=== PATIENT | male | born 1995 | race Caucasian/White ===

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

== ENCOUNTER 2017-04-25 12:26 | Emergency (ER) | payer OTHER ==
[2017-04-25 12:40] VITALS: BP 129/62; PULSE 98; TEMP 98.5; BMI 23.0
[2017-04-25] MEDS ORDERED: MAG HYDROX/AL HYDROX/SIMETH 355 ML ORAL.SUSP PO ONE (14:26)
[2017-04-25] MEDS ORDERED: LIDOCAINE VISCOUS 2% ORAL/TOP 20 ML UNIT-DOSE CUP MM ONE (14:26)
--- NOTE | 2017-04-25 14:37 | PDOC ---
History of Present Illness - General Chief Complaint: Sore Throat Stated Complaint: SOB Time Seen by Provider: 04/25/17 13:19 History Source: Patient Exam Limitations: No Limitations - History of Present Illness Initial Comments: 04/25/17 14:32 22 yr male with c/o "something stuck in the throat" for one week feels like a clogged sore throat. no fever no chills, pt denies swallowing any food that may be stuck. Pt is able to drink and eat, has a post nasal drip. non smoking, no drugs or ETOH. Pt has hsitory of GERD. Past History - Past Medical History Allergies/Adverse Reactions: Allergies Allergy/AdvReac Type Severity Reaction Status Date / Time No Known Allergies Allergy Verified 04/25/17 12:40 Home Medications: Ambulatory Orders Fluticasone Prop 0.05% Nasal [Flonase -] 1 - 2 spray NS DAILY #1 spray.pump Asthma: Yes Cardiac Disorders: Yes (MURMUR) GI Disorders: Yes (GERD) Psychiatric Problems: Yes (ANXIETY) - Immunization History Immunization Up to Date: Yes - Suicide/Smoking/Psychosocial Hx Smoking Status: No Smoking History: Never smoked Have you smoked in the past 12 months: No Number of Cigarettes Smoked Daily: 0 Information on smoking cessation initiated: No Hx Alcohol Use: No Drug/Substance Use Hx: No Substance Use Type: None Review of Systems - Review of Systems Able to Perform ROS?: Yes Is the patient limited Kazakh proficient: No Constitutional: No: Symptoms Reported HEENTM: Yes: Symptoms Reported, Difficulty Swallowing Respiratory: No: Symptoms reported Cardiac (ROS): No: Symptoms Reported ABD/GI: No: Symptoms Reported : No: Symptoms Reported Musculoskeletal: No: Symptoms Reported Integumentary: No: Symptoms Reported Neurological: No: Symptoms reported *Physical Exam - Vital Signs Last Vital Signs Temp Pulse Resp BP Pulse Ox 98.5 F 98 H 18 129/62 100 04/25/17 12:38 04/25/17 12:38 04/25/17 12:38 04/25/17 12:38 04/25/17 12:38 - Physical Exam General Appearance: Yes: Nourished, Appropriately Dressed HEENT: positive: EOMI, FRANCOIS, Normal ENT Inspection, TMs Normal, Pharynx Normal, Other (neg tonsilar exudate or swelling , pos post nasal drip ) Neck: positive: Supple. negative: Tender, Lymphadenopathy (R), Lymphadenopathy (L), Rigidity, Tender lateral Respiratory/Chest: positive: Lungs Clear, Normal Breath Sounds. negative: Chest Tender, Stridor, Wheezing Cardiovascular: positive: Regular Rhythm, Regular Rate Gastrointestinal/Abdominal: positive: Normal Bowel Sounds, Soft Musculoskeletal: positive: Normal Inspection Extremity: positive: Normal Capillary Refill, Normal Inspection, Normal Range of Motion Integumentary: positive: Normal Color, Dry, Warm Neurologic: positive: Fully Oriented, Alert, Normal Mood/Affect, Normal Response , Motor Strength 11/14 Medical Decision Making - Medical Decision Making 04/25/17 14:35 cc: sore throat, "something stuck in throat" no fever no chills speaking clearly no chest pain or shortness of breath will check for strep no recent travel or surgeries , no history of PE will give lidocaine, mallox and xray soft tissue neck and CXR *DC/Admit/Observation/Transfer Diagnosis at time of Disposition: Laryngopharyngitis - Discharge Dispostion Disposition: HOME Condition at time of disposition: Good - Prescriptions Prescriptions: Fluticasone Prop 0.05% Nasal [Flonase -] 1 - 2 spray NS DAILY #1 spray.pump - Referrals Referrals: Brian Burns MD [Primary Care Provider] - Yobani Bennett MD [Staff Physician] - - Patient Instructions Additional Instructions: gargle with warm salt water 4-5 times a day follow with the ENT doctor next week to make a follow up appointment CALL THURSDAY use flonase nasal spray as directed to help with any post nasal drip
[2017-04-25] MEDS ORDERED: MAG HYDROX/AL HYDROX/SIMETH 30 ML UNIT-DOSE CUP ONE (14:57)
[2017-04-25] MEDS ORDERED: LIDOCAINE VISCOUS 2% ORAL/TOP 20 ML UNIT-DOSE CUP ONE (15:02)
== END 2017-04-25 20:33 | disposition home or self-care (01) ==
LOC: JERFT 12:26
DX: J06.0 Acute laryngopharyngitis (principal); J45.909 Unspecified asthma, uncomplicated; K21.9 Gastro-esophageal reflux disease without esophagitis; F41.9 Anxiety disorder, unspecified
CPT/HCPCS: 70360-TC; 70490-TC; 71020-TC; 87070; 87430; 99281-25

== ENCOUNTER 2017-05-06 19:08 | Emergency (ER) | payer OTHER ==
[2017-05-06 19:14] VITALS: BP 127/84; PULSE 65; TEMP 98.9; BMI 22.9
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
[2017-05-06] MEDS ORDERED: KETOROLAC TROMETHAMINE 60 MG/2 ML VIAL IM ONE (20:05)
[2017-05-06] MEDS ORDERED: KETOROLAC TROMETHAMINE 60 MG/2 ML VIAL ONE (20:09)
--- NOTE | 2017-05-07 09:03 | EKG ---
Test Reason : Blood Pressure : / mmHG Vent. Rate : 067 BPM Atrial Rate : 067 BPM P-R Int : 150 ms QRS Dur : 094 ms QT Int : 368 ms P-R-T Axes : 003 062 030 degrees QTc Int : 388 ms SINUS RHYTHM WITH SINUS ARRHYTHMIA WHEN COMPARED WITH ECG OF 20-SEP-2016 15:38, NO SIGNIFICANT CHANGE WAS FOUND Confirmed by CHRIS DURAN MD ([id number]) on 05/07/2017 9:02:31 AM Referred By: MD MALLOY Confirmed By:CHRIS DURAN MD
== END 2017-05-06 20:15 | disposition home or self-care (01) ==
LOC: FER 19:08
PROC: 3E0233Z Introduction of Anti-inflammatory into Muscle, Percutaneous Approach (ICD-10-PCS; principal; 2017-05-06)
DX: M94.0 Chondrocostal junction syndrome [Tietze] (principal); K21.9 Gastro-esophageal reflux disease without esophagitis; F41.9 Anxiety disorder, unspecified; R01.1 Cardiac murmur, unspecified
CPT/HCPCS: 93005; 99283-25

== ENCOUNTER 2017-06-02 19:36 | Emergency (ER) | payer OTHER ==
[2017-06-02 20:01] VITALS: BP 129/69; PULSE 77; TEMP 98.2; BMI 20.3
--- NOTE | 2017-06-02 20:01 | PDOC ---
Rapid Medical Evaluation Chief Complaint: Foreign Body (FB) Time Seen by Provider: 06/02/17 19:59 Medical Evaluation: Allergies Allergy/AdvReac Type Severity Reaction Status Date / Time No Known Allergies Allergy Verified 04/25/17 12:40 06/02/17 19:59 I have performed a brief in-person evaluation of this patient. The patient presents with a chief complaint of: Foreign Body in Throat Pertinent physical exam findings: n/a I have ordered the following: soft tissue neck x-ray The patient will proceed to the ED for further evaluation.
--- NOTE | 2017-06-02 20:40 | PDOC ---
History of Present Illness - General Chief Complaint: Foreign Body (FB) Stated Complaint: PCP SENT/FOREIGN OBJECT STUCK IN THROAT Time Seen by Provider: 06/02/17 20:36 - History of Present Illness Initial Comments: 06/02/17 20:56 CHIEF COMPLAINT: foreign object to throat HISTORY OF PRESENT ILLNESS: 22 yo M with hx of GERD presents to [facility] with throat pain s/p eating fish and swallowing a piece of bone. Patient states he is unsure if the fishbone is still stuck in his throat. He denies any swelling to the throat, difficulty speaking, swallowing, or breathing at this time. PAST MEDICAL HISTORY: as per [facility] FAMILY HISTORY: Denies SOCIAL HISTORY: Denies tobacco, alcohol, illicit drug use. SURGICAL HISTORY: Denies ALLERGIES: No known drug allergies REVIEW OF SYSTEMS as per [facility] PHYSICAL EXAM General Appearance: Well-appearing, appropriately dressed. No apparent distress. HEENT: No foreign object visualized to oropharynx. EOMI, PERRLA. No photophobia, scleral icterus. Neck: Supple. Trachea midline. No tenderness, rigidity, carotid bruit, stridor , lymphadenopathy, or thyromegaly. Respiratory/Chest: Lungs CTAB. Cardiovascular: RRR. S1, S2. Musculoskeletal/Extremities: Normal inspection. FROM of all extremities, normal capillary refill. No tenderness to extremities, pedal edema, swelling, erythema or deformity. Integumentary: Appropriate color, dry, warm. No cyanosis, erythema, jaundice or rash Neurologic: marketing liaison II-XII intact. Fully oriented, alert. Appropriate mood/affect. Motor strength 5/5. No appreciable EOM palsy, facial droop or sensory deficit. Past History - Past Medical History Allergies/Adverse Reactions: Allergies Allergy/AdvReac Type Severity Reaction Status Date / Time No Known Allergies Allergy Verified 06/02/17 20:01 Home Medications: Ambulatory Orders Ranitidine [Zantac -] 150 mg PO ASDIR 06/02/17 Asthma: Yes Cardiac Disorders: Yes (MURMUR) COPD: No GI Disorders: Yes (GERD) Psychiatric Problems: Yes (ANXIETY) - Immunization History Immunization Up to Date: Yes - Suicide/Smoking/Psychosocial Hx Smoking Status: No Smoking History: Never smoked Have you smoked in the past 12 months: No Number of Cigarettes Smoked Daily: 0 Hx Alcohol Use: No Drug/Substance Use Hx: No Substance Use Type: None *Physical Exam - Vital Signs Last Vital Signs Temp Pulse Resp BP Pulse Ox 98.2 F 77 18 129/69 99 06/02/17 19:58 06/02/17 19:58 06/02/17 19:58 06/02/17 19:58 06/02/17 19:58 Medical Decision Making - Medical Decision Making 06/02/17 20:58 22 yo M with hx of GERD presents to [facility] with throat pain s/p eating fish and swallowing a piece of bone. Soft tissue neck x-ray Discussed case with radiologist MD Bashir, who states there is no foreign body to throat on x-ray. When compared to previous soft tissue neck CT, no significant changes are seen. Advised patient to take ibuprofen for pain and to f/u with ENT if symptoms persist. Advised patient of signs and symptoms for return to ER; patient verbalized understanding and agrees to plan. *DC/Admit/Observation/Transfer Diagnosis at time of Disposition: Foreign body sensation in throat - Discharge Dispostion Disposition: HOME Admit: No - Referrals Referrals: Brian Burns MD [Primary Care Provider] - Yobani Bennett MD [Staff Physician] - - Patient Instructions Printed Discharge Instructions: DI for Foreign Body, Swallowed-Adult Additional Instructions: Your x-ray was negative for any foreign body in your throat. You may take ibuprofen for any pain or discomfort. If your symptoms persist past 2-3 days despite taking ibuprofen, please follow up with the ENT doctor. If you develop any new swelling in your throat, difficulty speaking, swallowing, or breathing, or any new or worsening symptoms, please return to the ER. - Post Discharge Activity
== END 2017-06-02 21:04 | disposition home or self-care (01) ==
LOC: JERFT 19:36
DX: R09.89 Other specified symptoms and signs involving the circulatory and respiratory systems (principal); K21.9 Gastro-esophageal reflux disease without esophagitis; J45.909 Unspecified asthma, uncomplicated; F41.9 Anxiety disorder, unspecified
CPT/HCPCS: 70360-TC; 99281-25

== ENCOUNTER 2017-06-16 14:04 | Emergency (ER) | payer OTHER ==
[2017-06-16 14:10] VITALS: TEMP 97.8; BMI 23.0
--- NOTE | 2017-06-16 14:11 | PDOC ---
Rapid Medical Evaluation Chief Complaint: Chest Pain Time Seen by Provider: 06/16/17 14:07 Medical Evaluation: Allergies Allergy/AdvReac Type Severity Reaction Status Date / Time No Known Allergies Allergy Verified 06/16/17 14:06 06/16/17 14:09 I have performed a brief in-person evaluation of this patient. The patient presents with a chief complaint of: Chest pain w/ sob. H/o asthma and anxiety. States current sxs does not feel like his asthma or anxiety Pertinent physical exam findings: Stable and well niraj w/ clear chest/lungs I have ordered the following:ekg The patient will proceed to the ED for further evaluation. Discharge Disposition - Referrals Referrals: Padmini Burns MD [Primary Care Provider] - - Patient Instructions - Post Discharge Activity
--- NOTE | 2017-06-16 16:00 | PDOC ---
History of Present Illness <Brit Tamez - Last Filed: 06/16/17 16:17> - General History Source: Patient Exam Limitations: No Limitations - History of Present Illness Initial Comments: 06/16/17 16:29 The patient is a 22 year old male with a significant PMH of anxiety and GERD who presents to the emergency department with left chest pain and palpitations beginning approximately 2 days ago. The patient describes the chest pain as tightness that worsened when lying down and deep inspiration but improves with lying on the right side or standing up. The patient states he took advil this morning and aspirin 2 hours later. The patient states his sleep is normal and reports weight loss within the last month and a half. The patient denies shortness of breath, headache and dizziness. Denies fever, chills, nausea, vomit, diarrhea and constipation. Allergies: NKA Past surgical history: None reported. Social history: No reported alcohol, drug, or cigarette use. PCP: Dr. Burns <Marybel Chicas - Last Filed: 06/16/17 16:37> - General Chief Complaint: Chest Pain Stated Complaint: CHEST PAIN Time Seen by Provider: 06/16/17 14:07 Past History - Past Medical History Asthma: Yes Cardiac Disorders: Yes (MURMUR) COPD: No GI Disorders: Yes (GERD) Psychiatric Problems: Yes (ANXIETY) - Immunization History Immunization Up to Date: Yes - Suicide/Smoking/Psychosocial Hx Smoking Status: No Smoking History: Never smoked Have you smoked in the past 12 months: No Number of Cigarettes Smoked Daily: 0 Information on smoking cessation initiated: No Hx Alcohol Use: No Drug/Substance Use Hx: No Substance Use Type: None <Brit Tamez - Last Filed: 06/16/17 16:17> <Marybel Chicas - Last Filed: 06/16/17 16:37> - Past Medical History Allergies/Adverse Reactions: Allergies Allergy/AdvReac Type Severity Reaction Status Date / Time No Known Allergies Allergy Verified 06/16/17 14:06 Home Medications: Ambulatory Orders Ranitidine [Zantac -] 150 mg PO ASDIR 06/02/17 Ibuprofen [Motrin -] 600 mg PO TID PRN #21 tablet 06/16/17 Review of Systems - Review of Systems Able to Perform ROS?: Yes Comments:: 06/16/17 16:31 ADULT ROS GENERAL/CONSTITUTIONAL: No fever or chills. No weakness. HEAD, EYES, EARS, NOSE AND THROAT: No change in vision. No ear pain or discharge. No sore throat. CARDIOVASCULAR: (+) Left chest pain. No shortness of breath. RESPIRATORY: No cough, wheezing, or hemoptysis. GASTROINTESTINAL: No nausea, vomiting, diarrhea or constipation. GENITOURINARY: No dysuria, frequency, or change in urination. MUSCULOSKELETAL: No joint or muscle swelling or pain. No neck or back pain. SKIN: No rash NEUROLOGIC: No headache, vertigo, loss of consciousness, or change in strength/ sensation. ENDOCRINE: No increased thirst. No abnormal weight change. HEMATOLOGIC/LYMPHATIC: No anemia, easy bleeding, or history of blood clots. ALLERGIC/IMMUNOLOGIC: No hives or skin allergy. <Marybel Chicas - Last Filed: 06/16/17 16:37> *Physical Exam - Vital Signs Last Vital Signs Temp Pulse Resp BP Pulse Ox 97.8 F 75 18 125/65 100 06/16/17 14:06 06/16/17 14:06 06/16/17 14:06 06/16/17 14:06 06/16/17 14:06 <Brit Tamez - Last Filed: 06/16/17 16:17> - Vital Signs Last Vital Signs Temp Pulse Resp BP Pulse Ox 97.8 F 75 18 125/65 100 06/16/17 14:06 06/16/17 14:06 06/16/17 14:06 06/16/17 14:06 06/16/17 14:06 - Physical Exam Comments: 06/16/17 16:32 GENERAL: Awake, alert, and fully oriented, in no acute distress HEAD: No signs of trauma EYES: PERRLA, EOMI, sclera anicteric, conjunctiva clear ENT: Auricles normal inspection, hearing grossly normal, nares patent, oropharynx clear without exudates. Moist mucosa NECK: Normal ROM, supple, no lymphadenopathy, JVD, or masses LUNGS: Breath sounds equal, clear to auscultation bilaterally. No wheezes, and no crackles HEART: Regular rate and rhythm, normal S1 and S2, no murmurs, rubs or gallops ABDOMEN: Soft, nontender, normoactive bowel sounds. No guarding, no rebound. No masses MUSCULOSKELETAL: (+) Tenderness to palpation of the midclavicular and midaxillary lines. Normal range of motion at all joints. No bony deformities or tenderness. No CVA tenderness. EXTREMITIES: Normal range of motion, no edema. No clubbing or cyanosis. No cords, erythema, or tenderness NEUROLOGICAL: Cranial nerves II through XII grossly intact. Normal speech, normal gait SKIN: Warm, Dry, normal turgor, no rashes or lesions noted. <Marybel Chicas - Last Filed: 06/16/17 16:37> ED Treatment Course - RADIOLOGY Radiology Studies Ordered: Category Date Time Status CHEST PA & LAT [RAD] Stat Radiology 06/16/17 15:29 Completed <Brit Tamez - Last Filed: 06/16/17 16:17> *DC/Admit/Observation/Transfer - Discharge Dispostion Admit: No <Brit Tamez - Last Filed: 06/16/17 16:17> - Attestations Scribe Attestion: 06/16/17 16:36 Documentation prepared by Marybel Chicas, acting as senior medical technologist for Brit Tamez MD. <Marybel Chicas - Last Filed: 06/16/17 16:37> Diagnosis at time of Disposition: Atypical chest pain - Discharge Dispostion Disposition: HOME Condition at time of disposition: Stable - Prescriptions Prescriptions: Ibuprofen [Motrin -] 600 mg PO TID PRN #21 tablet PRN Reason: Pain - Referrals Referrals: Rashad Restrepo MD [Staff Physician] - - Patient Instructions Printed Discharge Instructions: DI for Atypical Chest Pain - Post Discharge Activity
[2017-06-16] MEDS ORDERED: IBUPROFEN 600 MG TABLET (FP) PO ONE ×2 (16:17→16:21)
[2017-06-16 16:35] VITALS: BP 125/67; PULSE 76
--- NOTE | 2017-06-17 08:02 | EKG ---
Test Reason : Blood Pressure : / mmHG Vent. Rate : 069 BPM Atrial Rate : 069 BPM P-R Int : 180 ms QRS Dur : 100 ms QT Int : 374 ms P-R-T Axes : 044 068 051 degrees QTc Int : 400 ms NORMAL SINUS RHYTHM CANNOT RULE OUT ANTERIOR INFARCT (CITED ON OR BEFORE 16-JUN-2017) RSR' PATTERN IN V1 ABNORMAL ECG WHEN COMPARED WITH ECG OF 06-MAY-2017 20:00, NO SIGNIFICANT CHANGE WAS FOUND Confirmed by MD Quiroz Daniel ([id number]) on 06/16/2017 3:05:38 PM Also confirmed by MD Quiroz Daniel [id number]), editor [employer] MEIR FAN ([id number]) on 06/17/2017 8:02:24 AM Referred By: Confirmed By:Meir Quiroz MD
== END 2017-06-16 16:35 | disposition home or self-care (01) ==
LOC: JER 14:04
DX: R07.89 Other chest pain (principal)
CPT/HCPCS: 71020-TC; 93005; 93010; 99282-25

== ENCOUNTER 2017-07-22 01:42 | Emergency (ER) | payer OTHER ==
[2017-07-22 02:51] VITALS: BP 130/69; PULSE 72; TEMP 98.4; BMI 21.7
== END 2017-07-22 03:22 | disposition left against medical advice (07) ==
LOC: JER 01:42
DX: Z53.21 Procedure and treatment not carried out due to patient leaving prior to being seen by health care provider (principal)
CPT/HCPCS: 99281-25

== ENCOUNTER 2017-07-25 20:41 | Emergency (ER) | payer OTHER ==
[2017-07-25 20:46] VITALS: BP 148/66; PULSE 70; TEMP 98.8; BMI 21.7
[2017-07-25] MEDS ORDERED: DEXAMETHASONE LIQUID 0.5 MG/5 ML 240 ML BULK BOTTLE PO ONE (22:14)
[2017-07-25] MEDS ORDERED: DEXAMETHASONE SOD PHOSPHATE 10 MG/1 ML VIAL ONE (22:18)
--- NOTE | 2017-07-25 22:34 | PDOC ---
History of Present Illness - General Chief Complaint: Sore Throat Stated Complaint: PAIN Time Seen by Provider: 07/25/17 20:54 - History of Present Illness Initial Comments: 07/25/17 22:28 CHIEF COMPLAINT: mouth/throat problem HISTORY OF PRESENT ILLNESS: 22 yo M with no significant PMH presents to [facility] with pain to "area under my tongue" and sensation of swelling "inside my neck/throat and I feel like it's hard to breathe." Patient states he has been experiencing this since yesterday. He denies any fever, chills, nausea, vomiting , diarrhea, and denies any potential allergens such as food or medications. PAST MEDICAL HISTORY: Denies past medical history FAMILY HISTORY: Denies SOCIAL HISTORY: Denies tobacco, alcohol, illicit drug use. SURGICAL HISTORY: Denies ALLERGIES: No known drug allergies REVIEW OF SYSTEMS General/Constitutional: Denies fever or chills. Denies weakness. HEENT: "The area right under my tongue when I lift my tongue up kind of hurts." Denies change in vision. Denies ear pain or discharge. Denies sore throat. Cardiovascular: Denies chest pain or shortness of breath. Respiratory: "I feel like there's swelling inside my neck and I can't breathe." Denies cough, wheezing, or hemoptysis. Gastrointestinal: Denies nausea, vomiting, diarrhea or constipation. Denies rectal bleeding. Genitourinary: Denies dysuria, frequency, or change in urination. Musculoskeletal: Denies joint or muscle swelling or pain. Denies neck or back pain. Skin and breasts: Denies rash or easy bruising. Neurologic: Denies headache, vertigo, loss of consciousness, or loss of sensation. PHYSICAL EXAM General Appearance: Well-appearing, appropriately dressed. No apparent distress HEENT: No swelling to tongue, lips, uvula, tonsils, throat, mouth. EOMI, PERRLA , normal ENT inspection, normal voice, TMs normal, pharynx normal. No conjunctival pallor. No photophobia, scleral icterus. Neck: Mild tenderness to anterior cervical lymph nodes. Supple. Trachea midline. No tenderness, rigidity, carotid bruit, stridor, or thyromegaly. Respiratory/Chest: Lungs CTAB. Cardiovascular: RRR. S1, S2. Gastrointestinal/Abdominal: Normal bowel sounds. Abdomen soft, non-distended. No tenderness or rebound tenderness. No organomegaly, pulsatile mass, guarding , hernia, hepatomegaly, splenomegaly. Musculoskeletal/Extremities: Normal inspection. FROM of all extremities, normal capillary refill. Pelvis Stable. No CVA tenderness. No tenderness to extremities, pedal edema, swelling, erythema or deformity. Integumentary: Appropriate color, dry, warm. No cyanosis, erythema, jaundice or rash Neurologic: welt wheeler II-XII intact. Fully oriented, alert. Appropriate mood/affect. Motor strength 5/5. No appreciable EOM palsy, facial droop or sensory deficit. Past History - Past Medical History Allergies/Adverse Reactions: Allergies Allergy/AdvReac Type Severity Reaction Status Date / Time No Known Allergies Allergy Verified 07/25/17 20:47 Home Medications: Ambulatory Orders NK [No Known Home Medication] 07/22/17 Asthma: Yes Cardiac Disorders: Yes (MURMUR) COPD: No GI Disorders: Yes (GERD) Psychiatric Problems: Yes (ANXIETY) - Immunization History Immunization Up to Date: Yes - Suicide/Smoking/Psychosocial Hx Smoking Status: No Smoking History: Never smoked Have you smoked in the past 12 months: No Number of Cigarettes Smoked Daily: 0 Information on smoking cessation initiated: No Hx Alcohol Use: No Drug/Substance Use Hx: No Substance Use Type: None *Physical Exam - Vital Signs Last Vital Signs Temp Pulse Resp BP Pulse Ox 98.8 F 70 16 148/66 100 07/25/17 20:42 07/25/17 20:42 07/25/17 20:42 07/25/17 20:42 07/25/17 20:42 ED Treatment Course - ADDITIONAL ORDERS Additional order review: 07/25/17 21:12 Influenza Types A,B Antigen (JOSE) - Final Nasopharyngeal Swab - Final 07/25/17 21:12 Group A Strep Rapid Antigen - Final Throat - Medications Given in the ED: ED Medications Discontinued Medications Generic Name Dose Route Start Last Admin Trade Name Freq PRN Reason Stop Dose Admin Dexamethasone 10 mg 07/25/17 22:14 07/25/17 22:19 Decadron Liquid - PO 07/25/17 22:15 10 mg ONCE ONE Administration Medical Decision Making - Medical Decision Making 07/25/17 22:31 22 yo M with no significant PMH presents to [facility] with pain to "area under my tongue" and sensation of swelling "inside my neck/throat and I feel like it' s hard to breathe." Likely lymphadenopathy. Given patient's concern of swelling inside neck and difficulty swallowing and breathing, will rx Decadron for inflammation. Advised patient to take medication as prescribed and follow up with ENT if symptoms persist. Advised patient of signs and symptoms for return to ED. Patient verbalized understanding and agrees to plan. *DC/Admit/Observation/Transfer Diagnosis at time of Disposition: Mouth pain, Throat tightness - Discharge Dispostion Disposition: HOME Condition at time of disposition: Stable Admit: No - Referrals Referrals: Brian Burns MD [Primary Care Provider] - Yobani Bennett MD [Staff Physician] - - Patient Instructions - Post Discharge Activity
== END 2017-07-25 22:38 | disposition home or self-care (01) ==
LOC: JERFT 20:41
DX: J39.2 Other diseases of pharynx (principal); F41.9 Anxiety disorder, unspecified; K21.9 Gastro-esophageal reflux disease without esophagitis; J45.909 Unspecified asthma, uncomplicated
CPT/HCPCS: 87070; 87430; 87804; 99281-25

== ENCOUNTER 2017-08-23 18:50 | Emergency (ER) | payer OTHER ==
[2017-08-23 19:57] VITALS: BP 115/69; PULSE 74; TEMP 98.5; BMI 21.7
--- NOTE | 2017-08-23 20:37 | PDOC ---
History of Present Illness - General History Source: Patient Exam Limitations: No Limitations - History of Present Illness Initial Comments: 08/23/17 21:52 Patient is a 22 year old male with a significant past medical history of anxiety and GERD who presents to the ED with complaints of throat pain that began earlier this week. Patient reports initially experiencing high subjective fever earlier this week. He reports the fever subsided, and now is left with a throat pain that has been consistent all week. Patient reports feeling a slight swelling in his throat that is uncomfortable, prompting him to come into the ED for further evaluation. He reports taking advil for the pain, with minimal relief. Denies chest pain, Sob. Denies nausea, vomiting. Denies fevers, chills. Denies coughing, head pain. Denies contact with sick individuals, out of state travelling. Denies any other symptoms. Allergies: None Social history: No smoking. No alcohol. No illicit drugs. Surgical history: None PMD: Dr. Burns <Moses Wilkinson - Last Filed: 08/23/17 21:52> <Cooper Lopes - Last Filed: 08/24/17 03:26> - General Chief Complaint: Sore Throat Stated Complaint: SORE THROAT Time Seen by Provider: 08/23/17 20:34 Past History <Moses Wilkinson - Last Filed: 08/23/17 21:52> - Past Medical History Asthma: Yes Cardiac Disorders: Yes (MURMUR) COPD: No GI Disorders: Yes (GERD) Psychiatric Problems: Yes (ANXIETY) - Immunization History Immunization Up to Date: Yes - Suicide/Smoking/Psychosocial Hx Smoking Status: No Smoking History: Never smoked Have you smoked in the past 12 months: No Number of Cigarettes Smoked Daily: 0 Hx Alcohol Use: No Drug/Substance Use Hx: No Substance Use Type: None <Cooper Lopes - Last Filed: 08/24/17 03:26> - Past Medical History Allergies/Adverse Reactions: Allergies Allergy/AdvReac Type Severity Reaction Status Date / Time No Known Allergies Allergy Verified 08/23/17 18:55 Home Medications: Ambulatory Orders NK [No Known Home Medication] 07/22/17 Review of Systems - Review of Systems Able to Perform ROS?: Yes Comments:: 08/23/17 21:52 GENERAL/CONSTITUTIONAL: No fever or chills. No weakness. HEAD, EYES, EARS, NOSE AND THROAT: +Throat pain. No change in vision. No ear pain or discharge. CARDIOVASCULAR: No chest pain or shortness of breath. RESPIRATORY: No cough, wheezing, or hemoptysis. GASTROINTESTINAL: No nausea, vomiting, diarrhea or constipation. GENITOURINARY: No dysuria, frequency, or change in urination. MUSCULOSKELETAL: No joint or muscle swelling or pain. No neck or back pain. SKIN: No rash NEUROLOGIC: No headache, vertigo, loss of consciousness, or change in strength/ sensation. ENDOCRINE: No increased thirst. No abnormal weight change. HEMATOLOGIC/LYMPHATIC: No anemia, easy bleeding, or history of blood clots. ALLERGIC/IMMUNOLOGIC: No hives or skin allergy. <Moses Wilkinson - Last Filed: 08/23/17 21:52> *Physical Exam - Vital Signs Last Vital Signs Temp Pulse Resp BP Pulse Ox 98.5 F 74 16 115/69 100 08/23/17 18:54 08/23/17 18:54 08/23/17 18:54 08/23/17 18:54 08/23/17 18:54 - Physical Exam Comments: 08/23/17 21:53 GENERAL: Awake, alert, and fully oriented, in no acute distress HEAD: No signs of trauma EYES: PERRLA, EOMI, sclera anicteric, conjunctiva clear ENT: Auricles normal inspection, hearing grossly normal, nares patent, oropharynx clear without exudates. Moist mucosa NECK: Normal ROM, supple, no lymphadenopathy, JVD, or masses LUNGS: Breath sounds equal, clear to auscultation bilaterally. No wheezes, and no crackles HEART: Regular rate and rhythm, normal S1 and S2, no murmurs, rubs or gallops ABDOMEN: Soft, nontender, normoactive bowel sounds. No guarding, no rebound. No masses EXTREMITIES: Normal range of motion, no edema. No clubbing or cyanosis. No cords, erythema, or tenderness NEUROLOGICAL: Cranial nerves II through XII grossly intact. Normal speech, normal gait SKIN: Warm, Dry, normal turgor, no rashes or lesions noted. <Moses Wilkinson - Last Filed: 08/23/17 21:52> - Vital Signs Last Vital Signs Temp Pulse Resp BP Pulse Ox 98.5 F 74 16 115/69 100 08/23/17 18:54 08/23/17 18:54 08/23/17 18:54 08/23/17 18:54 08/23/17 18:54 <Cooper Lopes - Last Filed: 08/24/17 03:26> ED Treatment Course - ADDITIONAL ORDERS Additional order review: 08/23/17 20:40 Group A Strep Rapid Antigen - Final Throat NEGATIVE FOR THE ANTIGEN OF BETA HEMOLYTIC STREP GROUP A <Moses Wilkinson - Last Filed: 08/23/17 21:52> Medical Decision Making - Medical Decision Making 08/24/17 03:26 nl appearing throat symptomatic mgmt will call for culture results <Cooper Lopes - Last Filed: 08/24/17 03:26> *DC/Admit/Observation/Transfer - Attestations Scribe Attestion: 08/23/17 21:53 Documentation prepared by Moses Wilkinson, acting as bilingual medical receptionist for Cooper Lopes MD/DO. <Moses Wilkinson - Last Filed: 08/23/17 21:52> <Cooper Lopes - Last Filed: 08/24/17 03:26> Diagnosis at time of Disposition: Throat pain - Discharge Dispostion Disposition: HOME Condition at time of disposition: Good - Referrals Referrals: Brian Burns MD [Primary Care Provider] - - Patient Instructions Additional Instructions: Use advil and chloraseptic lozenges to relieve your pain. Call us in two days for the result of your throat culture: . - Post Discharge Activity
== END 2017-08-23 20:38 | disposition home or self-care (01) ==
LOC: FER 18:50
DX: J02.9 Acute pharyngitis, unspecified (principal); F41.9 Anxiety disorder, unspecified; K21.9 Gastro-esophageal reflux disease without esophagitis; R01.1 Cardiac murmur, unspecified
CPT/HCPCS: 87070; 87430; 99281-25

== ENCOUNTER 2017-11-12 09:54 | Emergency (ER) | payer OTHER ==
[2017-11-12 10:14] VITALS: TEMP 98.1; BMI 20.3
[2017-11-12] MEDS ORDERED: SODIUM CHLORIDE 0.9% 1000 ML INFUS.BAG IV ONE (10:48)
--- NOTE | 2017-11-12 11:04 | PDOC ---
History of Present Illness - General History Source: Patient Exam Limitations: No Limitations - History of Present Illness Initial Comments: 11/12/17 10:56 22 with no pmh presents with difficulty breathing for the past month exacerbated this morning, associated with palpitations. He has found it to be more and more difficult to take a full breath over the past month. This feeling comes and goes throughtout the day and seems to come at random. Not exacerbated by time of day or exertion. . He also admits to difficulty eating solid foods above a certain size for the past year or so, causing him to lose 70lbs of weight, from 230 to 160lbs. States that he was evaluated at Dr. Burns's office for a swallow test which was unconclusive. Denies night sweats, chills, <All Victoria - Last Filed: 11/12/17 12:32> <Tiffani Gutierrez - Last Filed: 11/12/17 13:21> - General Chief Complaint: Shortness of Breath Stated Complaint: CHEST PAIN Time Seen by Provider: 11/12/17 10:23 Past History - Past Medical History Asthma: Yes Cardiac Disorders: Yes (MURMUR) COPD: No GI Disorders: Yes (GERD) Psychiatric Problems: Yes (ANXIETY) - Immunization History Immunization Up to Date: Yes - Suicide/Smoking/Psychosocial Hx Smoking Status: No Smoking History: Never smoked Have you smoked in the past 12 months: No Number of Cigarettes Smoked Daily: 0 Hx Alcohol Use: No Drug/Substance Use Hx: No Substance Use Type: None <All Victoria - Last Filed: 11/12/17 12:32> <Tiffani Gutierrez - Last Filed: 11/12/17 13:21> - Past Medical History Allergies/Adverse Reactions: Allergies Allergy/AdvReac Type Severity Reaction Status Date / Time No Known Allergies Allergy Verified 11/12/17 10:10 Home Medications: Ambulatory Orders NK [No Known Home Medication] 07/22/17 Review of Systems - Review of Systems Able to Perform ROS?: Yes Is the patient limited Cymraes proficient: No Constitutional: No: Symptoms Reported HEENTM: No: Symptoms Reported Respiratory: No: Symptoms reported Cardiac (ROS): No: Symptoms Reported ABD/GI: No: Symptoms Reported : No: Symptoms Reported Musculoskeletal: No: Symptoms Reported Integumentary: No: Symptoms Reported Neurological: Yes: Unsteady Gait, Dizziness Endocrine: No: Symptoms Reported Hematologic/Lymphatic: No: Symptoms Reported All Other Systems: Reviewed and Negative <All Victoria - Last Filed: 11/12/17 12:32> *Physical Exam - Vital Signs Last Vital Signs Temp Pulse Resp BP Pulse Ox 98.1 F 87 16 111/68 98 11/12/17 10:11 11/12/17 10:11 11/12/17 10:11 11/12/17 10:11 11/12/17 10:11 - Physical Exam General Appearance: Yes: Nourished, Appropriately Dressed. No: Apparent Distress HEENT: positive: EOMI, FRANCOIS, Normal ENT Inspection. negative: Tonsillar Erythema Neck: negative: Tender Respiratory/Chest: positive: Lungs Clear, Normal Breath Sounds. negative: Chest Tender, Respiratory Distress Cardiovascular: positive: Regular Rhythm, Regular Rate, S1, S2 Gastrointestinal/Abdominal: positive: Normal Bowel Sounds, Flat, Soft. negative : Tender Musculoskeletal: positive: Normal Inspection. negative: CVA Tenderness Integumentary: positive: Normal Color, Dry, Warm Neurologic: positive: Fully Oriented, Alert, Normal Mood/Affect, Normal Response , Motor Strength 5/5 <All Victoria - Last Filed: 11/12/17 12:32> - Vital Signs Last Vital Signs Temp Pulse Resp BP Pulse Ox 98.1 F 87 16 111/68 98 11/12/17 10:11 11/12/17 10:11 11/12/17 10:11 11/12/17 10:11 11/12/17 10:11 <Tiffani Gutierrez - Last Filed: 11/12/17 13:21> ED Treatment Course - LABORATORY CBC & Chemistry Diagram: 11/12/17 11:00 11/12/17 11:00 <All Victoria - Last Filed: 11/12/17 12:32> - LABORATORY CBC & Chemistry Diagram: 11/12/17 11:00 11/12/17 11:00 - ADDITIONAL ORDERS Additional order review: Laboratory Results 11/12/17 11/12/17 11/12/17 11:15 11:00 11:00 Sodium 142 Potassium 4.0 Chloride 105 Carbon Dioxide 28 Anion Gap 9 BUN 7 D Creatinine 0.7 Creat Clearance w eGFR > 60 Random Glucose 86 Calcium 9.2 Total Bilirubin 0.7 D AST 16 D ALT 16 D Alkaline Phosphatase 70 Total Protein 7.2 Albumin 4.3 TSH Cancelled Urine Color Ltyellow Urine Appearance Clear Urine pH 7.0 Ur Specific [place] 1.008 Urine Protein Negative Urine Glucose (UA) Negative Urine Ketones Negative Urine Blood Negative Urine Nitrite Negative Urine Bilirubin Negative Urine Urobilinogen Negative Ur Leukocyte Esterase Negative 11/12/17 11:00 RBC 4.35 MCV 87.2 MCHC 34.3 RDW 13.0 MPV 9.0 Neutrophils % 58.8 Lymphocytes % 30.6 D Monocytes % 6.6 Eosinophils % 3.5 Basophils % 0.5 - RADIOLOGY Radiology Studies Ordered: Category Date Time Status CHEST PA & LAT [RAD] Stat Radiology 11/12/17 10:47 Completed - Medications Given in the ED: ED Medications Discontinued Medications Generic Name Dose Route Start Last Admin Trade Name Freq PRN Reason Stop Dose Admin Sodium Chloride 1,000 ml 11/12/17 10:48 11/12/17 11:28 Normal Saline - IV 11/12/17 10:49 1,000 ml ONCE ONE Administration <Tiffani Gutierrez - Last Filed: 11/12/17 13:21> Medical Decision Making - Medical Decision Making 11/12/17 12:32 22m with h/o anxiety and asthma presenting with shortness of breath this morning exacerbated from month-long symptoms. All labs are negative. Previous imaging of barium swallow and numerous CT soft tissue neck negative. Spoke to Dr. Burns who doesn't see a change of weight in his records. Think this may be related to his anxiety. Spoke to patient about negative results. Will give GI referral. 11/12/17 12:44 CXR: 2 views reveal clear lungs, normal mediastinum and sharp angles. The bones and soft tissues are intact. Since 10/03/2017, there is no change of an adverse nature. <All Victoria - Last Filed: 11/12/17 12:32> *DC/Admit/Observation/Transfer - Discharge Dispostion Admit: No <All Victoria - Last Filed: 11/12/17 12:32> <Tiffani Gutierrez - Last Filed: 11/12/17 13:21> Diagnosis at time of Disposition: Dyspnea - Discharge Dispostion Disposition: HOME Condition at time of disposition: Improved - Referrals Referrals: Brian Burns MD [Primary Care Provider] - Marcial Michel MD [Staff Physician] - Yobani Bennett MD [Staff Physician] - - Patient Instructions Printed Discharge Instructions: DI for Shortness of Breath Additional Instructions: Follow up with Dr. Michel direct casting operator, within the next 3-4 days. inaddition you can follow up with [facility] DR Bennett, see referral information. Come back to the ER for any new, worsening or concerning symptom. - Post Discharge Activity
--- NOTE | 2017-11-12 11:05 | PDOC ---
Attending Attestation - HPI HPI: 11/12/17 11:05 The patient is a 22 year old male, with a significant past medical history of anxiety, GERD, and asthma, who presents to the emergency department with worsening cough, nasal congestion, and facial pressure for several days. The patient reports intermittent cough and nasal congestion for several months, but worse over the past few days. He reports associated chills and difficulty swallowing, but denies any fever, cough, headache, or dizziness. The patient reports he has lost 70 pounds over the past year secondary to difficulty swallowing. Patient reports he was evaluated by his PCP, Dr. Burns, for his symptoms where he had a swallow test, which was negative. He reports his symptoms are typically alleviated by Vicks Vaporub. He reports chest tightness and shortness of breath, but denies any diaphoresis, or palpitations. He denies any recent travel or sick contacts. Patient reports he has also been evaluated by an safety belt installer. PCP: Dr. Burns 11/12/17 11:54 Review of prior records demonstrates the patient has been evaluated in the ED in the past for similar complaints. The patient has had a barium swallow test done in the past, which was normal. - Physicial Exam PE: 11/12/17 11:05 GENERAL: Awake, alert, and fully oriented, in no acute distress HEAD: No signs of trauma EYES: PERRLA, EOMI, sclera anicteric, conjunctiva clear ENT: +Mild turbinate enlargement in nasal passages. Auricles normal inspection, hearing grossly normal. Moist mucosa. No posterior oropharynx erythema or exudates. NECK: Normal ROM, supple, no lymphadenopathy, JVD, or masses LUNGS: Breath sounds equal, clear to auscultation bilaterally. No wheezes, and no crackles HEART: Regular rate and rhythm, normal S1 and S2, no murmurs, rubs or gallops ABDOMEN: Soft, nontender, normoactive bowel sounds. No guarding, no rebound. No masses EXTREMITIES: Normal range of motion, no edema. No clubbing or cyanosis. No cords, erythema, or tenderness. DP/PT pulses 2+ and symmetric. NEUROLOGICAL: Moves all extremities. Normal speech, normal gait SKIN: Warm, Dry, normal turgor, no rashes or lesions noted. - Medical Decision Making 11/12/17 11:05 Documentation prepared by Jane Shankar, acting as medical tech for Tiffani Gutierrez MD. <Jane Shankar - Last Filed: 11/12/17 11:54> - Resident Resident Name: All Victoria - ED Attending Attestation I have performed the following: I have examined & evaluated the patient, The case was reviewed & discussed with the resident, I agree w/resident's findings & plan, Exceptions are as noted - Medical Decision Making 11/12/17 12:08 pt 22 yo male here h/o anxiety, GERD c/o weight loss, difficulty swallowing cough and chest tightness. review of records reveals pt has been seen several times for same. referred to pulmonology in the past. has recently seen allergy. has had barium swallow study which was normal. labs r/o electrolyte abormality normal. cxr negative for infection or other causes. d/w dr. perez, will see pt as outpt. given referal for [facility] GI. <Tiffani Gutierrez - Last Filed: 11/12/17 13:19>
[2017-11-12 11:18] LABS: BASO % 0.5 % (0-2.0); EOS % 3.5 % (0-4.5); HEMATOCRIT 37.9 % (35.4-49); LYMPH % 30.6 % (8-40); MCH 29.9 pg (25.7-33.7); MCHC 34.3 g/dl (32.0-35.9); MEAN CELL VOLUME 87.2 fl (80-96); MONO % 6.6 % (3.8-10.2); NEUT % 58.8 % (42.8-82.8); PLATELET COUNT 223 K/MM3 (134-434); RBC 4.35 M/mm3 (4.00-5.60); WHITE BLOOD COUNT 4.8 K/mm3 (4.0-10.0)
[2017-11-12 11:38] LABS: URINE APPEARANCE CLEAR; URINE BILIRUBIN NEGATIVE (<2.0 mg/dL); URINE BLOOD NEGATIVE (NEGATIVE); URINE COLOR LTYELLOW; URINE GLUCOSE (UA) NEGATIVE (NEGATIVE); URINE KETONE NEGATIVE (NEGATIVE); URINE LEUK ESTERASE NEGATIVE (NEGATIVE); URINE NITRITE NEGATIVE (NEGATIVE); URINE PROTEIN NEGATIVE (NEGATIVE); URINE UROBILINOGEN NEGATIVE mg/dL (0.2-1.0)
[2017-11-12 11:48] LABS: ALBUMIN 4.3 g/dl (3.4-5.0); ANION GAP 9 (8-16); BILIRUBIN,TOTAL 0.7 mg/dL (0.2-1.0); BLOOD UREA NITROGEN 7 mg/dL (7-18); CALCIUM 9.2 mg/dL (8.5-10.1); CHLORIDE 105 mmol/L (98-107); CO2 28 mmol/L (21-32); CREATININE 0.7 mg/dL (0.7-1.3); GLUCOSE,RANDOM 86 mg/dL (74-106); SGOT/AST 16 U/L (15-37); SGPT/ALT 16 U/L (12-78); SODIUM 142 mmol/L (136-145); TOT PROT 7.2 g/dl (6.4-8.2)
[2017-11-12 11:49] LABS: ALK PHOS 70 U/L (45-117)
--- NOTE | 2017-11-12 13:00 | EKG ---
Test Reason : Blood Pressure : / mmHG Vent. Rate : 065 BPM Atrial Rate : 065 BPM P-R Int : 192 ms QRS Dur : 100 ms QT Int : 378 ms P-R-T Axes : 023 059 024 degrees QTc Int : 393 ms NORMAL SINUS RHYTHM WITH SINUS ARRHYTHMIA NORMAL ECG WHEN COMPARED WITH ECG OF 03-OCT-2017 11:58, NO SIGNIFICANT CHANGE WAS FOUND Confirmed by MYAH AMBROSE MD ([id number]) on 11/12/2017 1:00:26 PM Referred By: Confirmed By:MYAH AMBROSE MD
[2017-11-12 13:34] VITALS: BP 119/63; PULSE 70
== END 2017-11-12 13:33 | disposition home or self-care (01) ==
LOC: JER 09:54
PROC: 3E0337Z Introduction of Electrolytic and Water Balance Substance into Peripheral Vein, Percutaneous Approach (ICD-10-PCS; principal; 2017-11-12)
DX: R06.00 Dyspnea, unspecified (principal); F41.9 Anxiety disorder, unspecified; J45.909 Unspecified asthma, uncomplicated
CPT/HCPCS: 36415; 71046-TC-FY; 80053; 81003; 84443; 85025; 93005; 93010; 99283-25; J7030

== ENCOUNTER 2017-11-30 11:01 | Emergency (ER) | payer OTHER ==
[2017-11-30 11:12] VITALS: BP 117/68; PULSE 90; TEMP 98.3; BMI 23.0
[2017-11-30] MEDS ORDERED: ALBUTEROL SO4 2.5/IPRATROPIUM 0.5 INH SOL 3 ML VIAL.NEB. NEB ONE ×2 (11:50→12:10)
--- NOTE | 2017-11-30 11:54 | PDOC ---
History of Present Illness - General Chief Complaint: Respiratory Stated Complaint: COUGH FOR 3 DAYS WITH SHORTNESS OF BREATH Time Seen by Provider: 11/30/17 11:05 History Source: Patient Exam Limitations: No Limitations - History of Present Illness Initial Comments: 11/30/17 11:51 22y M no pmhx presents with sob/cough. pt notes cough productive of yellowish sputum the past 3-4 days associated with a chest tightness and achyness, endroses a stuffy nose without any pronounced discharge. denies fever/chils, leg swelling, hemoptysis, recent surgeries, recent travel or known sick contacts. Pt denies a hx of asthma, but notes he had pna in the past assoc with wheezing so was given an albuterol pump, which he used occasionally the past few days without significantly improvement. denies smoking, drug use, etoh use Past History - Past Medical History Allergies/Adverse Reactions: Allergies Allergy/AdvReac Type Severity Reaction Status Date / Time No Known Allergies Allergy Verified 11/30/17 11:03 Home Medications: Ambulatory Orders Albuterol Sulfate [Proventil HFA Inhaler -] 1 - 2 inh PO PRN 11/30/17 Asthma: Yes Cardiac Disorders: Yes (MURMUR) COPD: No GI Disorders: Yes (GERD) Psychiatric Problems: Yes (ANXIETY) Other medical history: PNEUMONIA - Immunization History Immunization Up to Date: Yes - Suicide/Smoking/Psychosocial Hx Smoking Status: No Smoking History: Former smoker Have you smoked in the past 12 months: No Number of Cigarettes Smoked Daily: 0 If you are a former smoker, when did you quit?: 3 YEARS Information on smoking cessation initiated: No Hx Alcohol Use: No Drug/Substance Use Hx: No Substance Use Type: None Review of Systems - Review of Systems Able to Perform ROS?: Yes Comments:: 11/30/17 11:52 Constitutional - no reported Fever, Chills, HEENT: no reported vision changes, sore throat Respiratory: + cough, sob, no reported hemoptysis Cardiac: no reported chest pain, palpitations, light headedness, leg swelling Abd/GI: no reported abd pain, nausea, vomiting, blood per rectum, melena, diarrhea : no reported dysuria, frequency, discharge Musculskelatal - no reported back pain, joint swelling skin - no reported bruising, erythema, rash neurological: no reported headache, numbness, focal weakness, tingling, ataxia, hematologic: no reported easy bruising, easy bleeding *Physical Exam - Vital Signs Last Vital Signs Temp Pulse Resp BP Pulse Ox 98.3 F 90 20 117/68 100 11/30/17 11:02 11/30/17 11:02 11/30/17 11:02 11/30/17 11:02 11/30/17 11:02 - Physical Exam Comments: 11/30/17 11:53 GENERAL: The patient is awake, alert, and fully oriented, Nontoxic - in no acute distress. HEAD: Normocephalic, atraumatic. EYES: extraocular movements intact, sclera anicteric, conjunctiva clear. ENT: Normal voice, Moist mucous membranes, posterior pharynx clear with exudates or erythema NECK: Normal range of motion, supple LUNGS: Breath sounds equal, clear to auscultation bilaterally good air movement w/o wheezing, rales, speaking complete sentences HEART: Regular rate and rhythm, normal S1 and S2 without murmur, rub or gallop. ABDOMEN: Soft, nontender, EXTREMITIES: Normal range of motion, no edema. neg homans sign NEUROLOGICAL: No facial assymetry, Normal speech, moving all 4 extremities spontaneously and symmetrically PSYCH: Normal mood, normal affect. SKIN: Warm, Dry, normal turgor, Moderate Sedation - Procedure Monitoring Vital Signs: Vital Signs Temp Pulse Resp BP Pulse Ox 98.3 F 90 20 117/68 100 11/30/17 11:02 11/30/17 11:02 11/30/17 11:02 11/30/17 11:02 11/30/17 11:02 ED Treatment Course - RADIOLOGY Radiology Studies Ordered: Category Date Time Status CHEST PA & LAT [RAD] Stat Radiology 11/30/17 11:50 Ordered Medical Decision Making - Medical Decision Making 11/30/17 11:54 suspect URI, no clinical signs of pna, ptx, pe perc negative rogelio obtain cxr to r/o pna neb to see if his cough improves 11/30/17 12:17 cxr negative no signs of ptx will dc with supportive care I discussed the physical exam findings, ancillary test results and final diagnoses with the patient. I answered all of the patient's questions. The patient was satisfied with the care received and felt comfortable with the discharge plan and treatment plan. The patient will call their primary care physician within 24 hours to arrange follow-up and will return to the Emergency Department with any new, persistent or worsening symptoms. *DC/Admit/Observation/Transfer Diagnosis at time of Disposition: Cough - Discharge Dispostion Disposition: HOME Condition at time of disposition: Improved Decision to Admit order: No - Referrals Referrals: [facility] [place] [facility] [Provider Group] - Patient Instructions Printed Discharge Instructions: DI for Viral Upper Respiratory Infection -- Adult Additional Instructions: Return to the emergency department immediately with ANY new, persistent or worsening symptoms. You may take sudafed for your stuffy nose. Make sure to drink lots of fluid to loosen up your sputum. You MUST call and follow up with your doctor in 4 or 5 for further evaluation of your symptoms. Results were discussed with you. Please make sure your doctor reviews the results of your emergency evaluation. Print Language: TAIWANESE - Post Discharge Activity
[2017-11-30] MEDS ORDERED: KETOROLAC TROMETHAMINE 60 MG/2 ML VIAL IM ONE (12:37)
[2017-11-30] MEDS ORDERED: KETOROLAC TROMETHAMINE 30 MG/1 ML VIAL ONE (12:51)
== END 2017-11-30 13:17 | disposition home or self-care (01) ==
LOC: FER 11:01
PROC: 3E0F7GC Introduction of Other Therapeutic Substance into Respiratory Tract, Via Natural or Artificial Opening (ICD-10-PCS; principal; 2017-11-30)
PROC: 3E0233Z Introduction of Anti-inflammatory into Muscle, Percutaneous Approach (ICD-10-PCS; 2017-11-30)
DX: R05 Cough (principal)
CPT/HCPCS: 71046-TC-FY; 94640; 96372; 99281-25

== ENCOUNTER 2018-01-07 18:55 | Emergency (ER) | payer OTHER ==
--- NOTE | 2018-01-07 19:10 | PDOC ---
Rapid Medical Evaluation Time Seen by Provider: 01/07/18 19:10 Medical Evaluation: Allergies Allergy/AdvReac Type Severity Reaction Status Date / Time No Known Allergies Allergy Verified 12/28/17 21:09 01/07/18 19:10 I have performed a brief in-person evaluation of this patient. The patient presents with a chief complaint of: chest tightness worsened with coughing Pertinent physical exam findings: Lungs CTAB. Coughing in triage. I have ordered the following: EKG, CXR The patient will proceed to the ED for further evaluation. Discharge Disposition - Diagnosis Cough - Referrals - Patient Instructions - Post Discharge Activity
[2018-01-07 19:13] VITALS: BP 133/76; PULSE 70; TEMP 99; BMI 23.0
--- NOTE | 2018-01-07 21:24 | PDOC ---
History of Present Illness - General Chief Complaint: Sore Throat Stated Complaint: SORE THROAT Time Seen by Provider: 01/07/18 19:10 History Source: Patient Exam Limitations: No Limitations - History of Present Illness Initial Comments: 01/07/18 21:18 22-year-old male presents to the ED with complaints of sore throat and upper chest tightness when he takes a deep breath for the past few days. Patient states was seen here last week had a rapid strep done along with a chest x-ray which showed strep group F. Patient was given Augmentin which she states completed. Patient has no other complaints including headache, abdominal pain, diarrhea, or rash. Timing/Duration: intermittent Severity: mild Associated Symptoms: reports: fever/chills (chills intermittently), other. denies: weakness Past History - Past Medical History Allergies/Adverse Reactions: Allergies Allergy/AdvReac Type Severity Reaction Status Date / Time No Known Allergies Allergy Verified 01/07/18 19:13 Home Medications: Ambulatory Orders NK [No Known Home Medication] 01/07/18 Asthma: Yes Cardiac Disorders: Yes (MURMUR) COPD: No GI Disorders: Yes (GERD) Psychiatric Problems: Yes (ANXIETY) - Immunization History Immunization Up to Date: Yes - Suicide/Smoking/Psychosocial Hx Smoking Status: No Smoking History: Never smoked Have you smoked in the past 12 months: No Number of Cigarettes Smoked Daily: 0 If you are a former smoker, when did you quit?: 3 YEARS Hx Alcohol Use: No Drug/Substance Use Hx: No Substance Use Type: None Patient Lives Alone: No Lives with/in: parents Review of Systems - Review of Systems Able to Perform ROS?: No Constitutional: Yes: Chills HEENTM: Yes: Throat Pain Respiratory: No: Cough Cardiac (ROS): No: Chest Pain ABD/GI: No: Symptoms Reported : No: Symptoms Reported Musculoskeletal: No: Symptoms Reported Integumentary: No: Symptoms Reported Neurological: No: Symptoms reported *Physical Exam - Vital Signs Last Vital Signs Temp Pulse Resp BP Pulse Ox 99.0 F 70 18 133/76 99 01/07/18 19:10 01/07/18 19:10 01/07/18 19:10 01/07/18 19:10 01/07/18 19:10 - Physical Exam General Appearance: Yes: Nourished, Appropriately Dressed. No: Apparent Distress HEENT: positive: TMs Normal, Pharynx Normal. negative: Pale Conjunctivae Neck: positive: Normal Thyroid, Supple. negative: Lymphadenopathy (R), Lymphadenopathy (L) Respiratory/Chest: positive: Lungs Clear, Normal Breath Sounds. negative: Chest Tender, Respiratory Distress, Accessory Muscle Use, Labored Respiration Cardiovascular: positive: Regular Rhythm, Regular Rate. negative: Murmur Gastrointestinal/Abdominal: positive: Soft. negative: Tenderness Integumentary: positive: Normal Color, Warm, Moist Neurologic: positive: Motor Strength 5/5 (ambulatory) ED Treatment Course - ADDITIONAL ORDERS Additional order review: 01/07/18 19:45 Group A Strep Rapid Antigen - Final Throat Medical Decision Making - Medical Decision Making 01/07/18 21:03 Patient complaint sore throat and upper chest tightness. Patient with recent diagnosis of group F strep. Patient was treated with Augmentin. Patient will be retested. 01/07/18 21:24 strep Negative. Discharge home with supportive care instructions. *DC/Admit/Observation/Transfer Diagnosis at time of Disposition: Sore throat (viral) - Discharge Dispostion Disposition: HOME Condition at time of disposition: Good - Referrals Referrals: Brian Burns MD [Primary Care Provider] - - Patient Instructions Printed Discharge Instructions: Sore Throat Additional Instructions: At this time eat soft nonabrasive food, use throat lozenges and may take Motrin or Tylenol for discomfort. Please also follow up with your PCP - Post Discharge Activity
--- NOTE | 2018-01-08 09:13 | EKG ---
Test Reason : Blood Pressure : / mmHG Vent. Rate : 066 BPM Atrial Rate : 066 BPM P-R Int : 176 ms QRS Dur : 102 ms QT Int : 374 ms P-R-T Axes : 043 069 049 degrees QTc Int : 392 ms NORMAL SINUS RHYTHM INCOMPLETE RIGHT BUNDLE BRANCH BLOCK Confirmed by EBONY CORTES MD ([id number]) on 01/08/2018 9:12:47 AM Referred By: Confirmed By:EBONY CORTES MD
== END 2018-01-07 21:28 | disposition home or self-care (01) ==
LOC: JERFT 18:55
DX: J02.0 Streptococcal pharyngitis (principal); B97.89 Other viral agents as the cause of diseases classified elsewhere
CPT/HCPCS: 87070; 87077; 87430; 93005; 93010; 99281-25

== ENCOUNTER 2018-01-23 21:17 | Emergency (ER) | payer OTHER ==
[2018-01-23 21:48] VITALS: BP 135/95; PULSE 82; TEMP 98.8; BMI 23.0
--- NOTE | 2018-01-23 22:06 | PDOC ---
History of Present Illness - General Chief Complaint: Shortness of Breath Stated Complaint: DIFFICULTY BREATHING Time Seen by Provider: 01/23/18 21:50 History Source: Patient, Old Records Exam Limitations: No Limitations - History of Present Illness Initial Comments: 01/23/18 22:04 22-year-old male with past medical history of anxiety presents emergency Department with increased shortness of breath which has persisted for the past 10 days. Patient states was seen and evaluated here twice for similar symptoms and had a negative workup each time. Patient states he had a negative nuclear stress test done in 09/2017. Patient states this feeling is different from his anxiety as he is not tremulous at this time. He denies any headaches, dizziness , abdominal pain, nausea, vomiting. Past History - Past Medical History Allergies/Adverse Reactions: Allergies Allergy/AdvReac Type Severity Reaction Status Date / Time No Known Allergies Allergy Verified 01/24/18 00:42 Home Medications: Ambulatory Orders hydrOXYzine HCL [Atarax -] 50 mg PO QID #30 tablet 01/24/18 Asthma: Yes Cardiac Disorders: Yes (MURMUR) COPD: No GI Disorders: Yes (GERD) Psychiatric Problems: Yes (ANXIETY) - Immunization History Immunization Up to Date: Yes - Suicide/Smoking/Psychosocial Hx Smoking Status: No Smoking History: Never smoked Have you smoked in the past 12 months: No Number of Cigarettes Smoked Daily: 0 If you are a former smoker, when did you quit?: 3 YEARS Information on smoking cessation initiated: No Hx Alcohol Use: No Drug/Substance Use Hx: No Substance Use Type: None Review of Systems - Review of Systems Able to Perform ROS?: Yes Is the patient limited Macedonian proficient: No Constitutional: No: Symptoms Reported HEENTM: No: Symptoms Reported Respiratory: Yes: See HPI Cardiac (ROS): No: Symptoms Reported ABD/GI: No: Symptoms Reported : No: Symptoms Reported Musculoskeletal: No: Symptoms Reported Integumentary: No: Symptoms Reported Neurological: No: Symptoms reported Endocrine: No: Symptoms Reported Hematologic/Lymphatic: No: Symptoms Reported *Physical Exam - Vital Signs Last Vital Signs Temp Pulse Resp BP Pulse Ox 98.8 F 82 18 135/95 100 01/23/18 21:47 01/23/18 21:47 01/23/18 21:47 01/23/18 21:47 01/23/18 21:47 - Physical Exam General Appearance: Yes: Appropriately Dressed. No: Apparent Distress HEENT: positive: Normal ENT Inspection Neck: positive: Trachea midline, Supple Respiratory/Chest: positive: Lungs Clear, Normal Breath Sounds. negative: Respiratory Distress, Accessory Muscle Use Cardiovascular: positive: Regular Rhythm, Regular Rate, S1, S2. negative: Edema , Murmur Gastrointestinal/Abdominal: positive: Normal Bowel Sounds, Soft. negative: Tender Integumentary: positive: Normal Color, Dry, Warm Neurologic: positive: Alert, Normal Response Medical Decision Making - Medical Decision Making 01/23/18 22:07 A/P: 22-year-old male with history of anxiety presenting with shortness of breath for the past 10 days Speaking full sentences. Lungs clear to auscultation bilaterally Respirations even and unlabored RRR. S1 and S2 present. No murmur, rub or gallop present. Abdomen soft nontender nondistended Patient is low risk for PE given no recent travel, normal vital signs, absence of leg swelling, benign medical history. Patient had a normal chest x-ray 2 days ago and an unremarkable laboratory testing on 01/13. I'll repeat EKG and reevaluate. 01/24/18 01:26 EKG sinus rhythm at rate of 69. Discussed with patient that he continues to have multiple evaluations for similar symptoms. He has been seen in the emergency department multiple times and has had a full evaluation by engineering patternmaker including a negative stress test. Patient is currently seeking the care of a newspaper delivery driver on recommendations primary doctor. It was discussed with the patient that there may be a psychiatric component to his frequent seeking out of health care. Patient agrees to follow up with his primary doctor and to discuss further psychiatric evaluation as an outpatient. I will give the patient a prescription for Atarax to help with anxiety until he can follow up with his primary doctor. *DC/Admit/Observation/Transfer Diagnosis at time of Disposition: Anxiety - Discharge Dispostion Disposition: HOME Condition at time of disposition: Stable Decision to Admit order: No - Prescriptions Prescriptions: hydrOXYzine HCL [Atarax -] 50 mg PO QID #30 tablet - Referrals Referrals: Brian Burns MD [Primary Care Provider] - - Patient Instructions Additional Instructions: Make an appointment with her primary doctor for continued evaluation. As discussed, you should make an appointment for psychiatric evaluation for evaluation of potential anxiety or other mental illness. Take Atarax 50 mg 4 times a day as needed for anxiety. Return to emergency department for any concerns. - Post Discharge Activity
--- NOTE | 2018-01-24 14:16 | EKG ---
Test Reason : Blood Pressure : / mmHG Vent. Rate : 069 BPM Atrial Rate : 069 BPM P-R Int : 182 ms QRS Dur : 092 ms QT Int : 368 ms P-R-T Axes : 040 054 034 degrees QTc Int : 394 ms NORMAL SINUS RHYTHM NORMAL ECG WHEN COMPARED WITH ECG OF 21-JAN-2018 21:07, NO SIGNIFICANT CHANGE WAS FOUND Confirmed by Mo Granados ([id number]) on 01/24/2018 2:15:31 PM Referred By: Confirmed By:Mo Granados
== END 2018-01-24 01:45 | disposition home or self-care (01) ==
LOC: JER 21:17
DX: F41.9 Anxiety disorder, unspecified (principal); R01.1 Cardiac murmur, unspecified; J45.909 Unspecified asthma, uncomplicated; K21.9 Gastro-esophageal reflux disease without esophagitis
CPT/HCPCS: 93005; 93010; 99282-25

== ENCOUNTER 2018-01-24 12:40 | Emergency (ER) | payer OTHER ==
[2018-01-24 12:45] VITALS: BP 136/82; PULSE 90; TEMP 98.6; BMI 23.0
--- NOTE | 2018-01-24 13:17 | PDOC ---
History of Present Illness - General Chief Complaint: Respiratory Stated Complaint: SOB Time Seen by Provider: 01/24/18 13:04 - History of Present Illness Initial Comments: 23-year-old male presents for evaluation of anxiety since this morning. He was seen last night in the emergency room given a prescription for Atarax however he scared to take it. He has no complaints of pain just anxiety 01/24/18 13:14 Past History - Past Medical History Allergies/Adverse Reactions: Allergies Allergy/AdvReac Type Severity Reaction Status Date / Time No Known Allergies Allergy Verified 01/24/18 12:43 Home Medications: Ambulatory Orders hydrOXYzine HCL [Atarax -] 50 mg PO QID #30 tablet 01/24/18 Asthma: Yes Cardiac Disorders: Yes (MURMUR) COPD: No GI Disorders: Yes (GERD) Psychiatric Problems: Yes (ANXIETY) - Immunization History Immunization Up to Date: Yes - Suicide/Smoking/Psychosocial Hx Smoking Status: No Smoking History: Never smoked Have you smoked in the past 12 months: No Number of Cigarettes Smoked Daily: 0 If you are a former smoker, when did you quit?: 3 YEARS Information on smoking cessation initiated: No Hx Alcohol Use: No Drug/Substance Use Hx: No Substance Use Type: None Review of Systems - Review of Systems Psychiatric: Yes: Anxiety All Other Systems: Reviewed and Negative *Physical Exam - Vital Signs Last Vital Signs Temp Pulse Resp BP Pulse Ox 98.6 F 90 18 136/82 100 01/24/18 12:41 01/24/18 12:41 01/24/18 12:41 01/24/18 12:41 01/24/18 12:41 - Physical Exam Comments: GENERAL: The patient is awake, alert, and fully oriented, in no acute distress. HEAD: Normal with no signs of trauma. EYES: Pupils equal, round and reactive to light, extraocular movements intact, sclera anicteric, conjunctiva clear. ENT: Ears normal, nares patent, oropharynx clear without exudates. Moist mucous membranes. NECK: Normal range of motion, supple without lymphadenopathy, JVD, or masses. LUNGS: Breath sounds equal, clear to auscultation bilaterally. No wheezes, and no crackles. HEART: Regular rate and rhythm, normal S1 and S2 without murmur, rub or gallop. ABDOMEN: Soft, nontender, normoactive bowel sounds. No guarding, no rebound. No masses. EXTREMITIES: Normal range of motion, no edema. No clubbing or cyanosis. No cords, erythema, or tenderness. NEUROLOGICAL: Cranial nerves II through XII grossly intact. Normal speech, normal gait. PSYCH: Normal mood, normal affect. SKIN: Warm, Dry, normal turgor, no rashes or lesions noted. 01/24/18 13:15 Medical Decision Making - Medical Decision Making 22-year-old male presents for evaluation of anxiety. He was just seen in the emergency room last night he has a similar complaint. His scared to take his medicine. I will give him psych evaluation and follow-up as an outpatient. He is not homicidal he has no suicidal ideations no interest in hurting himself or anyone else. 01/24/18 13:15 *DC/Admit/Observation/Transfer Diagnosis at time of Disposition: Anxiety - Discharge Dispostion Disposition: HOME Condition at time of disposition: Stable Decision to Admit order: No - Referrals Referrals: Brian Burns MD [Primary Care Provider] - Fer Bashir MD [Staff Physician] - Lis Villatoro MD [Non Staff, Medical] - Donal Juarez MD [Non Staff, Medical] - Jeana Comer [Non Staff, Medical] - Rafiq Mooney MD [Non Staff, Medical] - Barrera Serrato MD [Staff Physician] - Chace Dior MD [Staff Physician] - Nuvia Ivy MD [Non Staff, Medical] - Wilma Lee [Non Staff, Medical] - Nichole Hobbs MD [Non Staff, Medical] - Dominguez Mukherjee MD [Non Staff, Medical] - - Patient Instructions Printed Discharge Instructions: DI for Anxiety -- Adult Additional Instructions: Take the medications if you choose to they are at the pharmacy waiting for you. Return to the emergency room should her symptoms worsen or go unresolved. Please follow-up with primary care and psychiatry for further evaluation and treatment options. - Post Discharge Activity
== END 2018-01-24 13:25 | disposition home or self-care (01) ==
LOC: JERFT 12:40
DX: F41.9 Anxiety disorder, unspecified (principal); J45.909 Unspecified asthma, uncomplicated; R01.1 Cardiac murmur, unspecified; K21.9 Gastro-esophageal reflux disease without esophagitis
CPT/HCPCS: 99281-25

== ENCOUNTER 2018-01-28 16:15 | Emergency (ER) | payer OTHER ==
[2018-01-28 16:45] VITALS: BP 144/75; PULSE 92; TEMP 99; BMI 21.9
--- NOTE | 2018-01-28 16:45 | PDOC ---
Rapid Medical Evaluation Time Seen by Provider: 01/28/18 16:39 Medical Evaluation: Allergies Allergy/AdvReac Type Severity Reaction Status Date / Time No Known Allergies Allergy Verified 01/24/18 12:43 I have performed a brief in-person evaluation of this patient. The patient presents with a chief complaint of: "water sensation in throat" x 2 days with dry cough Pertinent physical exam findings: erythematous tonsil. dry cough I have ordered the following: cxr, rapid strep The patient will proceed to the ED for further evaluation. Discharge Disposition - Diagnosis Cough - Referrals - Patient Instructions - Post Discharge Activity
--- NOTE | 2018-01-28 17:20 | PDOC ---
History of Present Illness - General Chief Complaint: Respiratory Stated Complaint: COUGHING Time Seen by Provider: 01/28/18 16:39 History Source: Patient Exam Limitations: No Limitations - History of Present Illness Initial Comments: 01/28/18 17:29 Radial neuropathy complaints of feeling of water in his throat stating he drank a couple water this morning which "went down the wrong pipe" prompting him to have a cough and worsened anxiety. Patient currently denies difficulty breathing , weakness, or dizziness. Timing/Duration: 4-6 hours Severity: mild Associated Symptoms: reports: cough Past History - Travel Traveled outside of the country in the last 30 days: No - Past Medical History Allergies/Adverse Reactions: Allergies Allergy/AdvReac Type Severity Reaction Status Date / Time No Known Allergies Allergy Verified 01/28/18 16:42 Home Medications: Ambulatory Orders hydrOXYzine HCL [Atarax -] 50 mg PO QID #30 tablet 01/24/18 Asthma: Yes Cardiac Disorders: Yes (MURMUR) COPD: No GI Disorders: Yes (GERD) Psychiatric Problems: Yes (ANXIETY) - Immunization History Immunization Up to Date: Yes - Suicide/Smoking/Psychosocial Hx Smoking Status: No Smoking History: Never smoked Have you smoked in the past 12 months: No Number of Cigarettes Smoked Daily: 0 If you are a former smoker, when did you quit?: 3 YEARS Information on smoking cessation initiated: No Hx Alcohol Use: No Drug/Substance Use Hx: No Substance Use Type: None Patient Lives Alone: No Lives with/in: parents Review of Systems - Review of Systems Able to Perform ROS?: No Constitutional: No: Symptoms Reported HEENTM: Yes: Other Respiratory: Yes: Cough Cardiac (ROS): No: Symptoms Reported Integumentary: No: Symptoms Reported Neurological: No: Symptoms reported *Physical Exam - Vital Signs Last Vital Signs Temp Pulse Resp BP Pulse Ox 99.0 F 92 H 18 144/75 100 01/28/18 16:42 01/28/18 16:42 01/28/18 16:42 01/28/18 16:42 01/28/18 16:42 - Physical Exam General Appearance: Yes: Nourished, Appropriately Dressed. No: Apparent Distress HEENT: positive: Pharynx Normal Neck: positive: Supple. negative: Lymphadenopathy (R), Lymphadenopathy (L) Respiratory/Chest: positive: Lungs Clear, Normal Breath Sounds. negative: Respiratory Distress, Accessory Muscle Use Cardiovascular: positive: Regular Rhythm, Regular Rate. negative: Murmur Integumentary: positive: Normal Color, Warm, Moist Neurologic: positive: Motor Strength 5/5 (ambulatory) Medical Decision Making - Medical Decision Making 01/28/18 17:09 Patient with complaints of cough after drinking water which he claims went down his throat. Patient on exam had no acute findings but had chest x-ray and strep throat ordered from rapid medical evaluation. Patient awaiting results. 01/28/18 17:50 Chest x-ray and rapid strep negative. Patient will be discharged home with supportive care instructions including ways to reduce anxiety *DC/Admit/Observation/Transfer Diagnosis at time of Disposition: Cough - Discharge Dispostion Disposition: HOME Condition at time of disposition: Good - Referrals Referrals: Brian Burns MD [Primary Care Provider] - - Patient Instructions Printed Discharge Instructions: DI for Cough -- Adult Additional Instructions: Your symptoms will improve. Try relaxation techniques. - Post Discharge Activity
== END 2018-01-28 17:50 | disposition home or self-care (01) ==
LOC: JERFT 16:15
DX: R05 Cough (principal); R00.2 Palpitations; K21.9 Gastro-esophageal reflux disease without esophagitis; F41.9 Anxiety disorder, unspecified
CPT/HCPCS: 71046-TC-FY; 87070; 87430; 99281-25

== ENCOUNTER 2018-03-08 10:19 | Emergency (ER) | payer OTHER ==
[2018-03-08 10:28] VITALS: BP 112/79; PULSE 87; TEMP 98.8; BMI 22.4
--- NOTE | 2018-03-08 11:11 | PDOC ---
History of Present Illness - General Chief Complaint: Sore Throat Stated Complaint: SORE THROAT Time Seen by Provider: 03/08/18 10:38 History Source: Patient Exam Limitations: No Limitations - History of Present Illness Initial Comments: Patient is a 23-year-old male who states over the past 3 days he has had a sore throat. He denies fever, denies cough, denies lymphadenopathy. Denies contacts diagnosed with strep. He describes the pain as sore and rates at a 3 out of 10. Patient denies any aggravating or relieving factors. 03/08/18 11:07 Past History - Travel Traveled outside of the country in the last 30 days: No Close contact w/someone who was outside of country & ill: No - Past Medical History Allergies/Adverse Reactions: Allergies Allergy/AdvReac Type Severity Reaction Status Date / Time No Known Allergies Allergy Verified 03/08/18 10:25 Home Medications: Ambulatory Orders NK [No Known Home Medication] 03/08/18 Asthma: Yes Cardiac Disorders: Yes (MURMUR) COPD: No DVT: No GI Disorders: Yes (GERD) Psychiatric Problems: Yes (ANXIETY) - Immunization History Immunization Up to Date: Yes - Suicide/Smoking/Psychosocial Hx Smoking Status: No Smoking History: Never smoked Have you smoked in the past 12 months: No Number of Cigarettes Smoked Daily: 0 If you are a former smoker, when did you quit?: 3 YEARS Information on smoking cessation initiated: No Hx Alcohol Use: No Drug/Substance Use Hx: No Substance Use Type: None Review of Systems - Review of Systems Able to Perform ROS?: Yes Constitutional: No: Chills, Fever HEENTM: Yes: Throat Pain. No: Difficulty Swallowing Respiratory: No: Cough All Other Systems: Reviewed and Negative *Physical Exam - Vital Signs Last Vital Signs Temp Pulse Resp BP Pulse Ox 98.8 F 87 18 112/79 100 03/08/18 10:26 03/08/18 10:26 03/08/18 10:26 03/08/18 10:26 03/08/18 10:26 - Physical Exam Comments: Constitutional: VS stated, pt appears in no apparent distress; sitting in chair. Skin: Warm and dry. Intact, no lesions or excoriations. Head: Normocephalic; atraumatic Eyes:conjunctiva pink without injection or discharge. Ears: No tenderness present. Canals without injection or discharge; TM clear, no retractions or bulging. Nose: Patent, mucosa pink. No drainage. Throat: Oropharynx with pink and moist mucosa. Dentition good. No pharyngeal edema; erythema or exudate. Tongue normal, no fasciculations. Airway Patent. Hypoglossal area is soft. Uvula is midline. No trismus. Neck: Supple, non-tender, with full ROM, trachea midline, no anterior/posterior cervical chain lymphadenopathy, thyroid nonpalpable. No stridor or bruits. Lungs: Bilateral breath sounds clear upon auscultation. No adventitious breath sounds. Heart: Regular rate and rhythm, S1/S2 auscultated. No murmurs, rubs, or gallops. No visible pulsations, heaves, or lifts on precordium. Musculoskeletal: Moves all extremities without difficulty. Neurologic: Awake, alert. Conversation fluent. Psychiatric: Appropriate affect. 03/08/18 11:08 Medical Decision Making - Medical Decision Making 03/08/18 11:11 Pt's RBS was negative. specimen sent for throat culture. 03/08/18 12:05 *DC/Admit/Observation/Transfer Diagnosis at time of Disposition: Pharyngitis - Discharge Dispostion Disposition: HOME Condition at time of disposition: Stable Decision to Admit order: No - Referrals Referrals: Brian Burns MD [Primary Care Provider] - - Patient Instructions Printed Discharge Instructions: DI for Pharyngitis/Tonsillopharyngitis -- Adult - Post Discharge Activity
== END 2018-03-08 12:10 | disposition home or self-care (01) ==
LOC: JERFT 10:19
DX: J02.9 Acute pharyngitis, unspecified (principal); K21.9 Gastro-esophageal reflux disease without esophagitis; F41.9 Anxiety disorder, unspecified
CPT/HCPCS: 87070; 87430; 99281-25

== ENCOUNTER 2018-05-12 19:16 | Emergency (ER) | payer OTHER ==
[2018-05-12 19:26] VITALS: BP 124/80; PULSE 92; BMI 23.0
--- NOTE | 2018-05-12 20:36 | PDOC ---
History of Present Illness - General Chief Complaint: Pain Stated Complaint: STOMACH PAIN - History of Present Illness Initial Comments: The patient is a 23M w/ a history of anxiety who presents with L flank pain w/ radiation to his LUQ. The patient reports approximately 1m of 'odd scented' urine. The patient denies dysuria or hematuria. The patient denies recent fevers , vision changes, chest pain, SOB, or changes in sensation. Patient denies hx of kidney stones, denies penile discharge or testicular pain 05/12/18 21:36 Past History - Past Medical History Allergies/Adverse Reactions: Allergies Allergy/AdvReac Type Severity Reaction Status Date / Time No Known Allergies Allergy Verified 03/21/18 11:16 Home Medications: Ambulatory Orders hydrOXYzine PAMOATE [Vistaril -] 25 mg PO QID PRN #30 capsule 03/21/18 Asthma: Yes Cardiac Disorders: Yes (MURMUR) COPD: No DVT: No GI Disorders: Yes (GERD) Psychiatric Problems: Yes (ANXIETY) - Immunization History Immunization Up to Date: Yes - Suicide/Smoking/Psychosocial Hx Smoking Status: No Smoking History: Never smoked Have you smoked in the past 12 months: No Number of Cigarettes Smoked Daily: 0 If you are a former smoker, when did you quit?: 3 YEARS Information on smoking cessation initiated: No Hx Alcohol Use: No Drug/Substance Use Hx: No Substance Use Type: None Review of Systems - Review of Systems Able to Perform ROS?: Yes Comments:: GENERAL/CONSTITUTIONAL: No fever or chills. No weakness HEAD, EYES, EARS, NOSE AND THROAT: No change in vision. No ear pain or discharge. No sore throat CARDIOVASCULAR: No chest pain or shortness of breath RESPIRATORY: No cough, wheezing, or hemoptysis GASTROINTESTINAL: No nausea, vomiting, diarrhea or constipation GENITOURINARY: per HPI MUSCULOSKELETAL: No joint or muscle swelling or pain. No neck or back pain SKIN: No rash NEUROLOGIC: No headache, vertigo, loss of consciousness, or change in strength/ sensation ENDOCRINE: No increased thirst. No abnormal weight change HEMATOLOGIC/LYMPHATIC: No anemia, easy bleeding, or history of blood clots ALLERGIC/IMMUNOLOGIC: No hives or skin allergy 05/12/18 21:41 Is the patient limited Indian proficient: No *Physical Exam - Vital Signs Last Vital Signs Temp Pulse Resp BP Pulse Ox 98.4 F 92 H 20 124/80 100 05/12/18 19:23 05/12/18 19:23 05/12/18 19:23 05/12/18 19:23 05/12/18 19:23 - Physical Exam Comments: GENERAL: Awake, alert, and fully oriented, in no acute distress HEAD: No signs of trauma, normocephalic, atraumatic EYES: PERRLA, EOMI, sclera anicteric, conjunctiva clear ENT: Hearing grossly normal, nares patent, oropharynx clear without exudates NECK: Normal ROM, supple, no lymphadenopathy LUNGS: No distress, speaks full sentences, clear to auscultation bilaterally HEART: Regular rate and rhythm, normal S1 and S2, no murmurs, rubs or gallops, peripheral pulses normal and equal bilaterally ABDOMEN: Soft, mild RUQ TTP and suprapubic TTP without rebound or guarding, normoactive bowel sounds EXTREMITIES : Normal inspection, Normal range of motion, no edema. No clubbing or cyanosis NEUROLOGICAL: Cranial nerves II through XII grossly intact. Normal speech, normal gait, no focal sensorimotor deficits SKIN: Warm, Dry, normal turgor, no rashes or lesions noted 05/12/18 21:42 Medical Decision Making - Medical Decision Making The pt is a 23M w/ a history of asthma UA, UCx, U (GC, chlamydia) 05/12/18 21:34 Abd flat and upright to eval for constipation v stone v other pathology I have transferred care of the patient to Dr. Gan and discussed the clinical presentation, work-up and ED course thus far. UA w/o evidence of UTI 05/12/18 22:09 *DC/Admit/Observation/Transfer Diagnosis at time of Disposition: Left flank pain - Discharge Dispostion Condition at time of disposition: Stable - Referrals Referrals: Brian Burns MD [Primary Care Provider] - - Patient Instructions - Post Discharge Activity
--- NOTE | 2018-05-12 20:48 | PDOC ---
Attending Attestation - HPI HPI: 05/12/18 22:11 The patient is a 23 year old male, with a significant past medical history of anxiety, who presents to the emergency department with, 2 days of left flank pain radiating to his left quadrant abdomen. He denies any recent fevers, chills , headache or dizziness. He denies any recent nausea, vomit, diarrhea or constipation. He denies any recent chest pain or shortness of breath. He denies any recent dysuria, frequency, urgency or hematuria. Allergies: NKDA Past surgical history: None reported. Social History: Nonsmoker. Denies EtOH use and recreational drug use. Primary Care Physician: Dr. Burns - Physicial Exam PE: 05/12/18 22:11 Constitutional: Awake, alert, oriented. No acute distress. Head: Normocephalic. Atraumatic Eyes: PERRL. EOMI. Conjunctivae are not pale. ENT: Mucous membranes are moist and intact. Posterior pharynx without exudates or erythema. Uvula midline. Neck: Supple. Full ROM. No lymphadenopathy. Cardiovascular: Regular rate. Regular rhythm. S1, S2 regular. Distal pulses are 2+ and symmetric. Pulmonary/Chest: No evidence of respiratory distress. Clear to auscultation bilaterally No wheezing, rales or rhonchi. Abdominal: Soft and non-distended. There is no tenderness. No rebound, guarding or rigidity. No organomegaly. No palpable masses. Good bowel sounds. Back: No CVA tenderness. Musculoskeletal: No edema. No cyanosis. No clubbing. Full range of motion in all extremities. No calf tenderness. Radial/pedal pulses are intact and 2+ bilaterally Skin: Skin is warm and dry. No petechiae. No purpura. Neurological: Alert and oriented to person, place, and time. Cranial nerves II -XII are grossly intact. Normal speech. Strength is grossly symmetric. No sensory deficits. Psychiatric: Good eye contact. Normal interaction, affect and behavior. <Thor Osborn - Last Filed: 05/12/18 22:09> - Resident Resident Name: Portillo Rhoades - ED Attending Attestation I have performed the following: I have examined & evaluated the patient, The case was reviewed & discussed with the resident, I agree w/resident's findings & plan, Exceptions are as noted - Medical Decision Making 05/12/18 20:48 I, Dr. Lauren Cardona DO, attest that this document has been prepared under my direction and personally reviewed by me in its entirety. I further attest, that it accurately reflects all work, treatment, procedures and medical decision -making performed by me. 05/12/18 23:10 a/p: 23yo male with intermittent episodes of L sided abd pain -recently more constipated -no cva ttp -pt is nontoxic in appearance -denies hx of STI or penile discharge or testicular pain -denies hematuria -will send ua -will obtain xray abd 05/12/18 23:15 xray shows nonspecific bg pattern ua negative 05/12/18 23:20 pt states feeling much better discussed imaging and ua results pt states he wants to go home and will follow up with his PMd and Gi answered all quesitons. discussed all reasons to return to the ED <Lauren Cardona - Last Filed: 05/12/18 23:23> *DC/Admit/Observation/Transfer - Discharge Dispostion Decision to Admit order: No - Attestations Physician Attestion: 05/12/18 23:23 I, Dr. Lauren Cardona DO, attest that this document has been prepared under my direction and personally reviewed by me in its entirety. I further attest, that it accurately reflects all work, treatment, procedures and medical decision -making performed by me. <Lauren Cardona - Last Filed: 05/12/18 23:23> Diagnosis at time of Disposition: Left flank pain - Discharge Dispostion Disposition: HOME Condition at time of disposition: Stable - Referrals Referrals: Brian Burns MD [Primary Care Provider] - Cameron Robins MD [Staff Physician] - Hardeep Verma MD [Staff Physician] - - Patient Instructions Printed Discharge Instructions: DI for Flank Pain Additional Instructions: Please drink plenty of fluids. Please take colace daily. Please follow up with your PMD and with the environmental sustainability manager. Please return to the ED with any further concerns or complaints. - Post Discharge Activity
[2018-05-12 21:20] LABS: URINE APPEARANCE CLEAR; URINE BILIRUBIN NEGATIVE (<2.0 mg/dL); URINE COLOR COLORLESS; URINE GLUCOSE (UA) NEGATIVE (NEGATIVE); URINE KETONE NEGATIVE (NEGATIVE); URINE LEUK ESTERASE NEGATIVE (NEGATIVE); URINE NITRITE NEGATIVE (NEGATIVE); URINE PROTEIN NEGATIVE (NEGATIVE); URINE UROBILINOGEN NEGATIVE mg/dL (0.2-1.0)
[2018-05-12 21:22] VITALS: TEMP 100.5
[2018-05-12] MEDS ORDERED: ACETAMINOPHEN 325 MG TABLET (FP) PO ONE (21:36)
== END 2018-05-13 00:10 | disposition home or self-care (01) ==
LOC: JER 19:16
DX: R10.32 Left lower quadrant pain (principal); J45.909 Unspecified asthma, uncomplicated
CPT/HCPCS: 36415; 74019-TC-FY; 81003; 87086; 87491; 87591; 99281-25

== ENCOUNTER 2018-08-07 16:22 | Emergency (ER) | payer OTHER ==
[2018-08-07 16:37] VITALS: BP 154/74; PULSE 105; TEMP 98.5; BMI 23.0
[2018-08-07] MEDS ORDERED: predniSONE 20 MG TABLET (UD) PO ONE (16:39)
--- NOTE | 2018-08-07 16:39 | PDOC ---
History of Present Illness - General Chief Complaint: Asthma Stated Complaint: SHORTNESS OF BREATH Time Seen by Provider: 08/07/18 16:37 History Source: Patient Past History - Past Medical History Allergies/Adverse Reactions: Allergies Allergy/AdvReac Type Severity Reaction Status Date / Time No Known Allergies Allergy Verified 03/21/18 11:16 Home Medications: Ambulatory Orders hydrOXYzine PAMOATE [Vistaril -] 25 mg PO QID PRN #30 capsule 03/21/18 Asthma: Yes Cardiac Disorders: Yes (MURMUR) COPD: No DVT: No GI Disorders: Yes (GERD) Psychiatric Problems: Yes (ANXIETY) - Immunization History Immunization Up to Date: Yes - Suicide/Smoking/Psychosocial Hx Smoking Status: No Smoking History: Never smoked Have you smoked in the past 12 months: No Number of Cigarettes Smoked Daily: 0 If you are a former smoker, when did you quit?: 3 YEARS Information on smoking cessation initiated: No Hx Alcohol Use: No Drug/Substance Use Hx: No Substance Use Type: None Review of Systems - Review of Systems Constitutional: No: Chills, Fever Respiratory: Yes: Shortness of Breath Cardiac (ROS): No: Chest Pain, Lightheadedness, Palpitations, Syncope ABD/GI: No: Nausea, Vomiting *Physical Exam - Vital Signs Last Vital Signs Temp Pulse Resp BP Pulse Ox 98.5 F 105 H 17 154/74 100 08/07/18 16:35 08/07/18 16:35 08/07/18 16:35 08/07/18 16:35 08/07/18 16:35 - Physical Exam General Appearance: Yes: Appropriately Dressed. No: Apparent Distress HEENT: positive: Normal Voice Neck: positive: Supple Respiratory/Chest: positive: Lungs Clear, Normal Breath Sounds. negative: Respiratory Distress Cardiovascular: positive: Regular Rate, S1, S2 Integumentary: positive: Dry, Warm Neurologic: positive: Fully Oriented, Alert, Normal Mood/Affect Moderate Sedation - Procedure Monitoring Vital Signs: Procedure Monitoring Vital Signs Temperature 98.5 F 08/07/18 16:35 Pulse Rate 105 H 08/07/18 16:35 Respiratory Rate 17 08/07/18 16:35 Blood Pressure 154/74 08/07/18 16:35 O2 Sat by Pulse Oximetry (%) 100 08/07/18 16:35 Medical Decision Making - Medical Decision Making 08/07/18 17:15 23 yo M, h/o anxiety, here w/ SOB x 2 days that feels like his anxiety. States sxs better now. No CP or palpitations. Multiple ED visits for same w/ neg workup including stress test. States he has never seen a therapist or psychiatry and never been treated per pt. No SI/HI See exam Anxiety Since improved Declined benzo here Multiple ED visits for same w/ neg w/u Requesting new PMD as states current PMD "makes me more anxious" -dc w/ referral 0 *DC/Admit/Observation/Transfer Diagnosis at time of Disposition: SOB (shortness of breath) - Discharge Dispostion Disposition: HOME Condition at time of disposition: Improved - Referrals Referrals: Ray Sterling MD [Staff Physician] - - Patient Instructions Printed Discharge Instructions: DI for Anxiety -- Adult Additional Instructions: Given that you have been to the ER multiple times for similar symptoms with negative workup in the past, there is no workup needed at this time as symptoms appear chronic in nature. Anxiety is a possible diagnosis and you need to follow-up with your doctor and possible a therapist or psychiatrist for further evaluation - Post Discharge Activity
[2018-08-07] MEDS ORDERED: ALBUTEROL SO4 2.5/IPRATROPIUM 0.5 INH SOL 3 ML VIAL.NEB. NEB ONE (17:02)
[2018-08-07] MEDS ORDERED: predniSONE 20 MG TABLET (UD) ONE (17:02)
[2018-08-07] MEDS: ALBUTEROL SO4 2.5/IPRATROPIUM 0.5 INH SOL 3 ML VIAL.NEB. NEB SCH ×2 (17:08→17:09)
== END 2018-08-07 17:15 | disposition home or self-care (01) ==
LOC: JERFT 16:22
DX: F41.9 Anxiety disorder, unspecified (principal); J45.909 Unspecified asthma, uncomplicated; K21.9 Gastro-esophageal reflux disease without esophagitis; R01.1 Cardiac murmur, unspecified
CPT/HCPCS: 99281-25

== ENCOUNTER 2019-01-16 19:42 | Emergency (ER) | payer OTHER ==
[2019-01-16 19:53] VITALS: BP 130/76; PULSE 83; TEMP 98.7; BMI 26.0
--- NOTE | 2019-01-16 20:44 | PDOC ---
History of Present Illness - General Chief Complaint: Pain Stated Complaint: BACK AND RIBS DISCOMFORT WHEN INHALING Time Seen by Provider: 01/16/19 20:40 - History of Present Illness Initial Comments: 01/16/19 20:42 23-year-old male without comorbidities presents for evaluation of lower back pain. He states he was lifting heavy car parts however it the pain has since resolved. He was seen at an urgent care which advised him to go to the emergency room for further evaluation and chest x-ray. Past History - Past Medical History Allergies/Adverse Reactions: Allergies Allergy/AdvReac Type Severity Reaction Status Date / Time No Known Allergies Allergy Verified 01/16/19 19:53 Home Medications: Ambulatory Orders hydrOXYzine PAMOATE [Vistaril -] 25 mg PO QID PRN #30 capsule 03/21/18 Asthma: Yes Cardiac Disorders: Yes (MURMUR) COPD: No DVT: No GI Disorders: Yes (GERD) Psychiatric Problems: Yes (ANXIETY) - Immunization History Immunization Up to Date: Yes - Suicide/Smoking/Psychosocial Hx Smoking Status: No Smoking History: Never smoked Have you smoked in the past 12 months: No Number of Cigarettes Smoked Daily: 0 If you are a former smoker, when did you quit?: 3 YEARS Hx Alcohol Use: No Drug/Substance Use Hx: No Substance Use Type: None Review of Systems - Review of Systems Musculoskeletal: Yes: Back Pain *Physical Exam - Vital Signs Last Vital Signs Temp Pulse Resp BP Pulse Ox 98.7 F 83 18 130/76 99 01/16/19 19:51 01/16/19 19:51 01/16/19 19:51 01/16/19 19:51 01/16/19 19:51 - Physical Exam Comments: 01/16/19 20:42 HEAD: NC/AT EYES: Conjuntiva clear Ears: Canals and TM's normal NOSE: No d/c THROAT: Moist mucous membrances, oral pharanx clear, uvula midline NECK: Supple without adenopathy CARDIAC: S1 S2 LUNGS: CTA Full and Equal breath sounds ABDOMEN: Soft NT ND MS: Full ROM in all joints without edema NEUROLOGIC: No gross sensory or motor deficits, NVID SKIN: Normal color and temperature no lesions or rashes Medical Decision Making - Medical Decision Making 01/16/19 20:42 According to my history the patient had only back pain which resolved while waiting in the emergency room. He has no reproducible pain no pain with inspiration. No chest pain. Discussed use of Tylenol and Motrin. *DC/Admit/Observation/Transfer Diagnosis at time of Disposition: Back pain - Discharge Dispostion Disposition: HOME Condition at time of disposition: Improved Decision to Admit order: No - Referrals Referrals: Paresh Song MD, FA[facility] [Staff Physician] - - Patient Instructions Additional Instructions: Continue with Tylenol and Motrin as directed for pain. Follow-up with neurosurgery should you have further issues or return to the emergency room for further evaluation and treatment. - Post Discharge Activity
== END 2019-01-16 20:53 | disposition home or self-care (01) ==
LOC: JERFT 19:42
DX: M54.5 Low back pain (principal)
CPT/HCPCS: 99281-25

== ENCOUNTER 2019-01-25 16:58 | Emergency (ER) | payer OTHER ==
[2019-01-25 17:19] VITALS: BMI 26.0
--- NOTE | 2019-01-25 17:20 | PDOC ---
Rapid Medical Evaluation Chief Complaint: Pain Time Seen by Provider: 01/25/19 17:17 Medical Evaluation: Allergies Allergy/AdvReac Type Severity Reaction Status Date / Time No Known Allergies Allergy Verified 01/25/19 17:07 01/25/19 17:18 I have performed a brief in-person evaluation of this patient. The patient presents with a chief complaint of:lower abd pain w/ nausea and diarrhea today. No unusual food, sick contact, travel, abx use. H/o anxiety Pertinent physical exam findings:Jeanette minimally uncomfortable w/ ttp to mid lower abd, NT over RLQ I have ordered the following:labs The patient will proceed to the ED for further evaluation Discharge Disposition - Diagnosis Lower abdominal pain - Referrals - Patient Instructions - Post Discharge Activity
[2019-01-25] MEDS ORDERED: ACETAMINOPHEN 1000 MG/100 ML VIAL (NON FORMULARY) IVPB ONE (17:56)
[2019-01-25] MEDS ORDERED: SODIUM CHLORIDE 1,000 ML IV STA (17:56)
[2019-01-25] MEDS ORDERED: ONDANSETRON 4 MG/2 ML VIAL IVPUSH ONE (17:57)
[2019-01-25] MEDS ORDERED: ONDANSETRON 4 MG/2 ML VIAL ONE (18:40)
[2019-01-25] MEDS ORDERED: ACETAMINOPHEN INJECTION 100 ML IVPB ONE (18:40)
[2019-01-25 18:42] LABS: BASO % 0.4 % (0-2.0); EOS % 1.8 % (0-4.5); HEMATOCRIT 38.3 % (35.4-49); HEMOGLOBIN 13.1 GM/dL (11.7-16.9); MCH 29.6 pg (25.7-33.7); MCHC 34.3 g/dl (32.0-35.9); MEAN CELL VOLUME 86.4 fl (80-96); MEAN PLT VOLUME 9.6 fl (7.5-11.1); MONO % 4.7 % (3.8-10.2); NEUT % 76.1 % (42.8-82.8); PLATELET COUNT 229 K/MM3 (134-434); RBC 4.43 M/mm3 (4.00-5.60); RDW 12.6 % (11.9-15.9); WHITE BLOOD COUNT 9.9 K/mm3 (4.0-10.0)
--- NOTE | 2019-01-25 18:42 | PDOC ---
History of Present Illness - General Chief Complaint: Pain Stated Complaint: ABD PAIN Time Seen by Provider: 01/25/19 17:17 History Source: Patient Exam Limitations: No Limitations Past History - Travel Traveled outside of the country in the last 30 days: No Close contact w/someone who was outside of country & ill: No - Past Medical History Allergies/Adverse Reactions: Allergies Allergy/AdvReac Type Severity Reaction Status Date / Time No Known Allergies Allergy Verified 01/25/19 17:07 Home Medications: Ambulatory Orders hydrOXYzine PAMOATE [Vistaril -] 25 mg PO QID PRN #30 capsule 03/21/18 Asthma: Yes Cardiac Disorders: Yes (MURMUR) COPD: No DVT: No GI Disorders: Yes (GERD) Psychiatric Problems: Yes (ANXIETY) - Immunization History Immunization Up to Date: Yes - Suicide/Smoking/Psychosocial Hx Smoking Status: No Smoking History: Never smoked Have you smoked in the past 12 months: No Number of Cigarettes Smoked Daily: 0 If you are a former smoker, when did you quit?: 3 YEARS Information on smoking cessation initiated: No Hx Alcohol Use: No Drug/Substance Use Hx: No Substance Use Type: None Review of Systems - Review of Systems Able to Perform ROS?: Yes Comments:: 01/25/19 18:51 CONSTITUTIONAL: Absent: fever, chills, diaphoresis, generalized weakness, malaise, loss of appetite HEENT: Absent: rhinorrhea, nasal congestion, throat pain, throat swelling, difficulty swallowing, mouth swelling, ear pain, eye pain, visual Changes CARDIOVASCULAR: Absent: chest pain, loss of consciousness, palpitations, irregular heart rate, peripheral edema RESPIRATORY: Absent: cough, shortness of breath, dyspnea with exertion, orthopnea, wheezing, stridor, hemoptysis GASTROINTESTINAL: Present: lower abdominal pain Absent: abdominal distension, nausea, vomiting, diarrhea, constipation, melena, hematochezia GENITOURINARY: Present: urinary frequency Absent: dysuria, urgency, hesitancy, hematuria, flank pain, genital pain MUSCULOSKELETAL: Absent: myalgia, arthralgia, joint swelling SKIN: Absent: rash, itching, pallor HEMATOLOGIC/IMMUNOLOGIC: Absent: easy bleeding, easy bruising, lymphadenopathy, frequent infections ENDOCRINE: Absent: unexplained weight gain, unexplained weight loss, heat intolerance, cold intolerance NEUROLOGIC: Absent: headache, focal weakness or paresthesias, dizziness, unsteady gait, seizure, mental status changes, bladder or bowel incontinence PSYCHIATRIC: Absent: anxiety, depression, suicidal or homicidal ideation, hallucinations. Is the patient limited Citizen [place] proficient: No *Physical Exam - Vital Signs Last Vital Signs Temp Pulse Resp BP Pulse Ox 98.2 F 91 H 16 119/73 100 01/25/19 17:10 01/25/19 17:10 01/25/19 17:10 01/25/19 17:10 01/25/19 17:10 - Physical Exam Comments: 01/25/19 18:51 GENERAL: Well developed, well nourished. Awake and alert. No acute distress. HEENT: Normocephalic, atraumatic. PERRLA, EOMI. No conjunctival pallor. Sclera are non- icteric. Moist mucous membranes. Oropharynx is clear. NECK: Supple. Full ROM. No JVD. Carotid pulses 2+ and symmetric, without bruits. No thyromegaly. No lymphadenopathy. CARDIOVASCULAR: Regular rate and rhythm. No murmurs, rubs, or gallops. Distal pulses are 2+ and symmetric. PULMONARY: No evidence of respiratory distress. Lungs clear to auscultation bilaterally. No wheezing, rales or rhonchi. ABDOMINAL: TTP of the suprapubic area. Negative Rovsing sign. Soft. Non-distended. No rebound or guarding. No organomegaly. Normoactive bowel sounds. MUSCULOSKELETAL Normal range of motion at all joints. No bony deformities or tenderness. No CVA tenderness. EXTREMITIES: No cyanosis. No clubbing. No edema. No calf tenderness. SKIN: Warm and dry. Normal capillary refill. No rashes. No jaundice. NEUROLOGICAL: Alert, awake, appropriate. Cranial nerves 2-12 intact. No deficits to light touch and temperature in face, upper extremities and lower extremities. No motor deficits in the in face, upper extremities and lower extremities. Normoreflexic in the upper and lower extremities. Normal speech. Toes are down- going bilaterally. Gait is normal without ataxia. PSYCHIATRIC: Cooperative. Good eye contact. Appropriate mood and affect. ED Treatment Course - LABORATORY CBC & Chemistry Diagram: 01/25/19 18:17 01/25/19 18:17 Medical Decision Making - Medical Decision Making 01/25/19 18:52 The patient is a 23-year-old male with no past medical history who presents to the ER today for lower abdominal pain starting this afternoon. He states that the pain was very sharp in nature and it was mostly located above his bladder. He states it is going to the bathroom more frequently. Also admits to some loose stools. Denies fevers, chills, dysuria, hematuria, nausea, vomiting, constipation, chest pain and difficulty breathing. Denies recent travel. A/P: Lower abdominal pain On exam patient TTP of the suprapubic region. Patient appears to have a distended bladder Basic labs, urine ordered [facility] Zofran and fluids given Reevaluate Sign out given to MEDICAL DOCTOR NUCLE[facility] MEDICINE Alan. Patient pending lab results, depending on results may need scan. *DC/Admit/Observation/Transfer Diagnosis at time of Disposition: Suprapubic pain - Discharge Dispostion Disposition: HOME Condition at time of disposition: Improved - Referrals Referrals: Melanie Berman MD [Primary Care Provider] - - Patient Instructions Printed Discharge Instructions: DI for Musculoskeletal Pain Additional Instructions: drink plenty of fluids. your lab results are normal today. take ibuprofen every 6 hours as needed for pain - Post Discharge Activity Forms/Work/School Notes: Back to Work
[2019-01-25 18:49] LABS: INR 0.99 (0.83-1.09); PROTHROMBIN TIME (PATIENT) 11.7 SEC (9.7-13.0)
[2019-01-25 19:04] LABS: ALBUMIN 4.5 g/dl (3.4-5.0); BILIRUBIN,TOTAL 0.3 mg/dL (0.2-1); BLOOD UREA NITROGEN 8.3 mg/dL (7-18); CALCIUM 9.8 mg/dL (8.5-10.1); CREATININE 0.7 mg/dL (0.55-1.3); POTASSIUM 4.2 mmol/L (3.5-5.1); TOT PROT 7.4 g/dl (6.4-8.2)
[2019-01-25 19:25] VITALS: TEMP 98.7
--- NOTE | 2019-01-25 19:42 | PDOC ---
*Physical Exam - Vital Signs Last Vital Signs Temp Pulse Resp BP Pulse Ox 98.7 F 88 16 138/79 100 01/25/19 17:19 01/25/19 17:19 01/25/19 17:10 01/25/19 17:19 01/25/19 17:19 - Physical Exam General Appearance: Yes: Appropriately Dressed Cardiovascular: positive: Regular Rhythm, Regular Rate Gastrointestinal/Abdominal: positive: Normal Bowel Sounds, Soft. negative: Tender Male Genitalia: positive: normal genitalia, other (+ cremASTERIC ). negative: testicular tenderness, testicular mass, inguinal hernia Musculoskeletal: positive: Normal Inspection. negative: CVA Tenderness Extremity: positive: Normal Capillary Refill, Normal Inspection, Normal Range of Motion Integumentary: positive: Normal Color, Dry, Warm Neurologic: positive: oyster shipper II-XII NML intact, Fully Oriented, Alert, Normal Mood/ Affect ED Treatment Course - LABORATORY CBC & Chemistry Diagram: 01/25/19 18:17 01/25/19 18:17 - ADDITIONAL ORDERS Additional order review: Laboratory Results 01/25/19 01/25/19 01/25/19 18:17 18:17 18:17 PT with INR 11.70 INR 0.99 Sodium 139 Potassium 4.2 Chloride 105 Carbon Dioxide 31 Anion Gap 4 L BUN 8.3 Creatinine 0.7 Est GFR (CKD-EPI)AfAm 156.35 Est GFR (CKD-EPI)NonAf 134.90 Random Glucose 97 Calcium 9.8 Total Bilirubin 0.3 AST 16 ALT 27 Alkaline Phosphatase 80 Total Protein 7.4 Albumin 4.5 Lipase 96 01/25/19 18:17 RBC 4.43 MCV 86.4 MCHC 34.3 RDW 12.6 MPV 9.6 D Neutrophils % 76.1 D Lymphocytes % 17.0 D Monocytes % 4.7 Eosinophils % 1.8 Basophils % 0.4 - Medications Given in the ED: ED Medications Discontinued Medications Generic Name Dose Route Start Last Admin Trade Name Freq PRN Reason Stop Dose Admin Acetaminophen 1,000 mg 01/25/19 17:56 01/25/19 18:30 Ofirmev Injection - IVPB 01/25/19 17:57 1,000 mg ONCE ONE Administration Sodium Chloride 1,000 mls @ 1,000 mls/hr 01/25/19 17:56 01/25/19 18:15 Normal Saline - IV 01/25/19 18:55 1,000 mls/hr ASDIR STA Administration Ondansetron HCl 4 mg 01/25/19 17:57 01/25/19 18:30 Zofran Injection IVPUSH 01/25/19 17:58 4 mg ONCE ONE Administration Medical Decision Making - Medical Decision Making 01/25/19 19:59 PATIENT REPORTS AT home with suprapubic pain worse with movement. denies testicular pain. normal exam now. no pain likely muscular. pending UA. patient is in a monogamous relationship with . denies exposure to STI. patient is aware of GC testing/ 01/25/19 20:00 *DC/Admit/Observation/Transfer Diagnosis at time of Disposition: Suprapubic pain - Discharge Dispostion Disposition: HOME - Referrals Referrals: Melanie Berman MD [Primary Care Provider] - - Patient Instructions Printed Discharge Instructions: DI for Musculoskeletal Pain Additional Instructions: drink plenty of fluids. your lab results are normal today. take ibuprofen every 6 hours as needed for pain - Post Discharge Activity Forms/Work/School Notes: Back to Work
[2019-01-25 19:46] LABS: URINE APPEARANCE CLEAR; URINE BILIRUBIN NEGATIVE (NEGATIVE); URINE COLOR YELLOW; URINE GLUCOSE (UA) NEGATIVE (NEGATIVE); URINE KETONE NEGATIVE (NEGATIVE); URINE LEUK ESTERASE NEGATIVE (NEGATIVE); URINE NITRITE NEGATIVE (NEGATIVE); URINE PROTEIN NEGATIVE (NEGATIVE); URINE UROBILINOGEN 0.2 mg/dL (0.2-1.0)
[2019-01-25 20:57] VITALS: BP 125/82; PULSE 85
== END 2019-01-25 20:58 | disposition home or self-care (01) ==
LOC: JER 16:58
PROC: 3E0337Z Introduction of Electrolytic and Water Balance Substance into Peripheral Vein, Percutaneous Approach (ICD-10-PCS; principal; 2019-01-25)
PROC: 3E033NZ Introduction of Analgesics, Hypnotics, Sedatives into Peripheral Vein, Percutaneous Approach (ICD-10-PCS; 2019-01-25)
PROC: 3E033GC Introduction of Other Therapeutic Substance into Peripheral Vein, Percutaneous Approach (ICD-10-PCS; 2019-01-25)
DX: R10.2 Pelvic and perineal pain (principal); K21.9 Gastro-esophageal reflux disease without esophagitis; R01.1 Cardiac murmur, unspecified; F41.9 Anxiety disorder, unspecified; Z87.09 Personal history of other diseases of the respiratory system
CPT/HCPCS: 36415; 80053; 81003; 83690; 85025; 85610; 87086; 87491; 87591; 96361; 96374; 96375; 99283-25; J0131; J7030

== ENCOUNTER 2019-01-26 10:11 | Emergency (ER) | payer OTHER ==
[2019-01-26 10:23] VITALS: TEMP 98.4; BMI 29.0
[2019-01-26] MEDS ORDERED: ONDANSETRON 4 MG/2 ML VIAL IVPUSH ONE (10:42)
[2019-01-26] MEDS ORDERED: ACETAMINOPHEN 1000 MG/100 ML VIAL (NON FORMULARY) IVPB ONE (10:42)
--- NOTE | 2019-01-26 10:53 | PDOC ---
*Physical Exam - Vital Signs Last Vital Signs Temp Pulse Resp BP Pulse Ox 98.4 F 83 18 125/79 100 01/26/19 10:20 01/26/19 10:20 01/26/19 10:20 01/26/19 10:20 01/26/19 10:20 ED Treatment Course - LABORATORY CBC & Chemistry Diagram: 01/26/19 10:56 01/26/19 10:56 Medical Decision Making - Medical Decision Making 01/26/19 10:53 23 yo M returns to the ER with a complaint of suprapubic pain Work up yesterday negative Will do CT Pt seen by Midlevel Provider under my direct supervision Pt interviewed and examined Ancillary studies reviewed CT - no acute findings I agree with plan as outlined by Midlevel Provider 01/26/19 11:29 *DC/Admit/Observation/Transfer Diagnosis at time of Disposition: Abdominal pain - Discharge Dispostion Disposition: HOME Condition at time of disposition: Stable - Referrals Referrals: Cameron Robins MD [Staff Physician] - Melanie Berman MD [Primary Care Provider] - - Patient Instructions Printed Discharge Instructions: DI for Abdominal Pain-Adult Additional Instructions: You were evaluated for your abdominal pain today. Your CAT scan was normal. Your blood work was normal You may take Tylenol as needed for the pain. Follow the many factors instructions. Please follow up with your primary care doctor this week. Your also given a GI referral. Return to the ER for worsening abdominal pain, fevers or if you have any changes in your symptoms. - Post Discharge Activity Forms/Work/School Notes: Back to Work
[2019-01-26] MEDS ORDERED: ONDANSETRON 4 MG/2 ML VIAL ONE (11:06)
[2019-01-26] MEDS ORDERED: ACETAMINOPHEN INJECTION 100 ML IVPB ONE (11:06)
[2019-01-26 11:14] LABS: PH,URINE >= 9.0 (5.0-8.0); URINE APPEARANCE CLEAR; URINE BILIRUBIN NEGATIVE (NEGATIVE); URINE COLOR YELLOW; URINE GLUCOSE (UA) NEGATIVE (NEGATIVE); URINE KETONE NEGATIVE (NEGATIVE); URINE LEUK ESTERASE NEGATIVE (NEGATIVE); URINE NITRITE NEGATIVE (NEGATIVE); URINE PROTEIN NEGATIVE (NEGATIVE); URINE UROBILINOGEN 0.2 mg/dL (0.2-1.0)
[2019-01-26 11:15] LABS: BASO % 0.6 % (0-2.0); EOS % 2.2 % (0-4.5); HEMATOCRIT 38.8 % (35.4-49); HEMOGLOBIN 13.4 GM/dL (11.7-16.9); LYMPH % 26.6 % (8-40); MCHC 34.4 g/dl (32.0-35.9); MEAN PLT VOLUME 9.3 fl (7.5-11.1); MONO % 5.1 % (3.8-10.2); NEUT % 65.5 % (42.8-82.8); PLATELET COUNT 221 K/MM3 (134-434); RBC 4.46 M/mm3 (4.00-5.60); RDW 12.7 % (11.9-15.9); WHITE BLOOD COUNT 6.2 K/mm3 (4.0-10.0)
[2019-01-26 11:32] LABS: INR 1.06 (0.83-1.09); PROTHROMBIN TIME (PATIENT) 12.5 SEC (9.7-13.0)
[2019-01-26 11:42] LABS: ALBUMIN 4.5 g/dl (3.4-5.0); BILIRUBIN,TOTAL 0.8 mg/dL (0.2-1); BLOOD UREA NITROGEN 7.8 mg/dL (7-18); CREATININE 0.8 mg/dL (0.55-1.3); POTASSIUM 4.5 mmol/L (3.5-5.1); TOT PROT 7.4 g/dl (6.4-8.2)
--- NOTE | 2019-01-26 12:32 | PDOC ---
History of Present Illness - General Chief Complaint: Pain, Acute Stated Complaint: ABD. PAIN Time Seen by Provider: 01/26/19 10:41 History Source: Patient Exam Limitations: No Limitations Past History - Travel Traveled outside of the country in the last 30 days: No Close contact w/someone who was outside of country & ill: No - Past Medical History Allergies/Adverse Reactions: Allergies Allergy/AdvReac Type Severity Reaction Status Date / Time No Known Allergies Allergy Verified 01/25/19 17:07 Home Medications: Ambulatory Orders hydrOXYzine PAMOATE [Vistaril -] 25 mg PO QID PRN #30 capsule 03/21/18 Asthma: Yes Cardiac Disorders: Yes (MURMUR) COPD: No DVT: No GI Disorders: Yes (GERD) Psychiatric Problems: Yes (ANXIETY) - Immunization History Immunization Up to Date: Yes - Suicide/Smoking/Psychosocial Hx Smoking Status: No Smoking History: Never smoked Have you smoked in the past 12 months: No Number of Cigarettes Smoked Daily: 0 If you are a former smoker, when did you quit?: 3 YEARS Information on smoking cessation initiated: No Hx Alcohol Use: No Drug/Substance Use Hx: No Substance Use Type: None Review of Systems - Review of Systems Able to Perform ROS?: Yes Comments:: 01/26/19 14:39 CONSTITUTIONAL: Absent: fever, chills, diaphoresis, generalized weakness, malaise, loss of appetite HEENT: Absent: rhinorrhea, nasal congestion, throat pain, throat swelling, difficulty swallowing, mouth swelling, ear pain, eye pain, visual Changes CARDIOVASCULAR: Absent: chest pain, loss of consciousness, palpitations, irregular heart rate, peripheral edema RESPIRATORY: Absent: cough, shortness of breath, dyspnea with exertion, orthopnea, wheezing, stridor, hemoptysis GASTROINTESTINAL: Present: abdominal pain Absent: abdominal distension, nausea, vomiting, diarrhea , constipation, melena, hematochezia GENITOURINARY: Absent: dysuria, frequency, urgency, hesitancy, hematuria, flank pain, genital pain MUSCULOSKELETAL: Absent: myalgia, arthralgia, joint swelling SKIN: Absent: rash, itching, pallor HEMATOLOGIC/IMMUNOLOGIC: Absent: easy bleeding, easy bruising, lymphadenopathy, frequent infections ENDOCRINE: Absent: unexplained weight gain, unexplained weight loss, heat intolerance, cold intolerance NEUROLOGIC: Absent: headache, focal weakness or paresthesias, dizziness, unsteady gait, seizure, mental status changes, bladder or bowel incontinence PSYCHIATRIC: Absent: anxiety, depression, suicidal or homicidal ideation, hallucinations. Is the patient limited Estonian proficient: No *Physical Exam - Vital Signs Last Vital Signs Temp Pulse Resp BP Pulse Ox 98.4 F 83 18 125/79 100 01/26/19 10:20 01/26/19 10:20 01/26/19 10:20 01/26/19 10:20 01/26/19 10:20 - Physical Exam Comments: 01/26/19 14:40 GENERAL: Well developed, well nourished. Awake and alert. No acute distress. HEENT: Normocephalic, atraumatic. PERRLA, EOMI. No conjunctival pallor. Sclera are non- icteric. Moist mucous membranes. Oropharynx is clear. NECK: Supple. Full ROM. No JVD. Carotid pulses 2+ and symmetric, without bruits. No thyromegaly. No lymphadenopathy. CARDIOVASCULAR: Regular rate and rhythm. No murmurs, rubs, or gallops. Distal pulses are 2+ and symmetric. PULMONARY: No evidence of respiratory distress. Lungs clear to auscultation bilaterally. No wheezing, rales or rhonchi. ABDOMINAL: LLQ/suprapubic TTP. Soft. Non-distended. No rebound or guarding. No organomegaly. Normoactive bowel sounds. MUSCULOSKELETAL Normal range of motion at all joints. No bony deformities or tenderness. No CVA tenderness. EXTREMITIES: No cyanosis. No clubbing. No edema. No calf tenderness. SKIN: Warm and dry. Normal capillary refill. No rashes. No jaundice. NEUROLOGICAL: Alert, awake, appropriate. Cranial nerves 2-12 intact. No deficits to light touch and temperature in face, upper extremities and lower extremities. No motor deficits in the in face, upper extremities and lower extremities. Normoreflexic in the upper and lower extremities. Normal speech. Toes are down- going bilaterally. Gait is normal without ataxia. PSYCHIATRIC: Cooperative. Good eye contact. Appropriate mood and affect. ED Treatment Course - LABORATORY CBC & Chemistry Diagram: 01/26/19 10:56 01/26/19 10:56 - ADDITIONAL ORDERS Additional order review: Laboratory Results 01/26/19 01/26/19 01/26/19 10:56 10:56 10:56 PT with INR 12.50 INR 1.06 Sodium Potassium Chloride Carbon Dioxide Anion Gap BUN Creatinine Est GFR (CKD-EPI)AfAm Est GFR (CKD-EPI)NonAf Random Glucose Calcium Total Bilirubin AST ALT Alkaline Phosphatase Total Protein Albumin Lipase 73 Urine Color Yellow Urine Appearance Clear Urine pH >= 9.0 H Ur Specific [place] 1.005 L Urine Protein Negative Urine Glucose (UA) Negative Urine Ketones Negative Urine Blood Negative Urine Nitrite Negative Urine Bilirubin Negative Urine Urobilinogen 0.2 Ur Leukocyte Esterase Negative 01/26/19 10:56 PT with INR INR Sodium 141 Potassium 4.5 Chloride 107 Carbon Dioxide 31 Anion Gap 3 L BUN 7.8 Creatinine 0.8 Est GFR (CKD-EPI)AfAm 148.00 Est GFR (CKD-EPI)NonAf 127.70 Random Glucose 90 Calcium 10.0 Total Bilirubin 0.8 AST 20 ALT 27 Alkaline Phosphatase 75 Total Protein 7.4 Albumin 4.5 Lipase Urine Color Urine Appearance Urine pH Ur Specific [place] Urine Protein Urine Glucose (UA) Urine Ketones Urine Blood Urine Nitrite Urine Bilirubin Urine Urobilinogen Ur Leukocyte Esterase 01/26/19 10:56 RBC 4.46 MCV 87.0 MCHC 34.4 RDW 12.7 MPV 9.3 Neutrophils % 65.5 Lymphocytes % 26.6 D Monocytes % 5.1 Eosinophils % 2.2 Basophils % 0.6 - RADIOLOGY Radiology Studies Ordered: Category Date Time Status ABDOMEN & PELVIS CT WITH CONTR [CT] Stat CT Scan 01/26/19 10:42 Ordered - Medications Given in the ED: ED Medications Discontinued Medications Generic Name Dose Route Start Last Admin Trade Name Adarsh PRN Reason Stop Dose Admin Acetaminophen 1,000 mg 01/26/19 10:42 01/26/19 11:11 Ofirmev Injection - IVPB 01/26/19 10:43 1,000 mg ONCE ONE Administration Ondansetron HCl 4 mg 01/26/19 10:42 01/26/19 11:12 Zofran Injection IVPUSH 01/26/19 10:43 4 mg ONCE ONE Administration Medical Decision Making - Medical Decision Making 01/26/19 14:44 The patient is a 23-year-old male with no past medical history who presents to the ER today for lower abdominal pain starting yesterday. The patient was evaluated in our ER yesterday for the same symptoms. He states that the pain is very sharp and it comes and goes. It is mostly located above his bladder. Denies fevers, chills, hematuria, nausea, vomiting, constipation, chest pain or difficulty breathing. Denies recent travel. A/P: Abdominal pain Patient tender to the suprapubic region and left lower quadrant on abdominal exam. Basic labs are reordered as well as urine. Culture sent today. GC chlamydia not reordered as it is still pending. No concerning findings on lab work CT abdomen and pelvis shows no acute pathology at this time. We'll refer to have the patient follow up with his primary care doctor/GI I discussed the physical exam findings, ancillary test results and final diagnoses with the patient. I answered all of the patient's questions. The patient was satisfied with the care received and felt comfortable with the discharge plan and treatment plan. The Patient agrees to follow up with the primary care physician/specialist within 24-72 hours. Return precautions were given. *DC/Admit/Observation/Transfer Diagnosis at time of Disposition: Abdominal pain Qualifiers: Abdominal location: lower abdomen, unspecified Qualified Code(s): R10.30 - Lower abdominal pain, unspecified - Discharge Dispostion Disposition: HOME Condition at time of disposition: Stable Decision to Admit order: No - Referrals Referrals: Melanie Berman MD [Primary Care Provider] - Cameron Robins MD [Staff Physician] - - Patient Instructions Printed Discharge Instructions: DI for Abdominal Pain-Adult Additional Instructions: You were evaluated for your abdominal pain today. Your CAT scan was normal. Your blood work was normal You may take Tylenol as needed for the pain. Follow the many factors instructions. Please follow up with your primary care doctor this week. Your also given a GI referral. Return to the ER for worsening abdominal pain, fevers or if you have any changes in your symptoms. - Post Discharge Activity Forms/Work/School Notes: Back to Work
[2019-01-26 14:42] VITALS: BP 120/73; PULSE 73
== END 2019-01-26 15:10 | disposition home or self-care (01) ==
LOC: JER 10:11
PROC: 3E033NZ Introduction of Analgesics, Hypnotics, Sedatives into Peripheral Vein, Percutaneous Approach (ICD-10-PCS; principal; 2019-01-26)
PROC: 3E033GC Introduction of Other Therapeutic Substance into Peripheral Vein, Percutaneous Approach (ICD-10-PCS; 2019-01-26)
DX: R10.30 Lower abdominal pain, unspecified (principal)
CPT/HCPCS: 36415; 74177-TC; 80053; 81003; 83690; 85025; 85610; 87086; 96374; 96375; 99283-25; J0131

== ENCOUNTER 2019-07-27 09:55 | Emergency (ER) | payer OTHER ==
[2019-07-27 10:06] VITALS: BP 129/79; PULSE 84; TEMP 98.6; BMI 22.3
--- NOTE | 2019-07-27 10:19 | PDOC ---
History of Present Illness - General Chief Complaint: Cold Symptoms Stated Complaint: CONGESTION Time Seen by Provider: 07/27/19 10:10 History Source: Patient - History of Present Illness Timing/Duration: reports: other Past History - Past Medical History Allergies/Adverse Reactions: Allergies Allergy/AdvReac Type Severity Reaction Status Date / Time No Known Allergies Allergy Verified 01/25/19 17:07 Home Medications: Ambulatory Orders hydrOXYzine PAMOATE [Vistaril -] 25 mg PO QID PRN #30 capsule 03/21/18 Asthma: Yes Cardiac Disorders: Yes (MURMUR) COPD: No DVT: No GI Disorders: Yes (GERD) Psychiatric Problems: Yes (ANXIETY) - Immunization History Immunization Up to Date: Yes - Psycho Social/Smoking Cessation Hx Smoking Status: No Smoking History: Never smoked Have you smoked in the past 12 months: No Number of Cigarettes Smoked Daily: 0 If you are a former smoker, when did you quit?: 3 YEARS Information on smoking cessation initiated: No Hx Alcohol Use: No Drug/Substance Use Hx: No Substance Use Type: None Review of Systems - Review of Systems Constitutional: No: Chills, Fever Respiratory: Yes: Cough. No: Shortness of Breath, Wheezing Cardiac (ROS): No: Chest Pain *Physical Exam - Vital Signs Last Vital Signs Temp Pulse Resp BP Pulse Ox 98.6 F 84 18 129/79 100 07/27/19 10:04 07/27/19 10:04 07/27/19 10:04 07/27/19 10:04 07/27/19 10:04 - Physical Exam General Appearance: Yes: Appropriately Dressed. No: Apparent Distress HEENT: positive: Normal ENT Inspection, Normal Voice, TMs Normal, Pharynx Normal. negative: Scleral Icterus (R), Scleral Icterus (L) Neck: positive: Supple Respiratory/Chest: positive: Lungs Clear, Normal Breath Sounds. negative: Respiratory Distress Cardiovascular: positive: Regular Rate, S1, S2 Integumentary: positive: Dry, Warm Neurologic: positive: Fully Oriented, Alert, Normal Mood/Affect Medical Decision Making - Medical Decision Making 07/27/19 10:17 24-year-old male, no significant history, here with mostly non-productive cough for 2 days worse at nights. Only taking halls. No shortness of breath, chest pain fever or chills. States his mother sent him in to get evaluated. Well- appearing and stable with normal exam. Will dc with supportive treatment Discharge - Discharge Information Problems reviewed: Yes Clinical Impression/Diagnosis: Cough Condition: Good Disposition: HOME - Follow up/Referral - Patient Discharge Instructions Patient Printed Discharge Instructions: DI for Viral Upper Respiratory Infection -- Adult - Post Discharge Activity
== END 2019-07-27 10:31 | disposition home or self-care (01) ==
LOC: JERFT 09:55
DX: R05 Cough (principal); Z87.891 Personal history of nicotine dependence; K21.9 Gastro-esophageal reflux disease without esophagitis; F41.9 Anxiety disorder, unspecified; R00.2 Palpitations; J45.909 Unspecified asthma, uncomplicated
CPT/HCPCS: 99282-25

== ENCOUNTER 2020-08-11 14:56 | Emergency (ER) | payer OTHER | END 2020-08-11 15:33 | disposition home or self-care (01) | LOC: JVIRT 14:56 | DX: Z11.52 Encounter for screening for COVID-19 (principal) | CPT/HCPCS: G2012-GT ==

== ENCOUNTER 2020-09-05 08:43 | Emergency (ER) | payer OTHER ==
[2020-09-05 08:49] VITALS: BP 133/74; PULSE 91; TEMP 97.9; BMI 29.4
[2020-09-05] MEDS ORDERED: ONDANSETRON 4 MG TABLET PO ONE (09:22)
[2020-09-05] MEDS ORDERED: ONDANSETRON *ODT* 4 MG TABLET ONE (09:26)
== END 2020-09-05 09:30 | disposition home or self-care (01) ==
LOC: JER 08:43
DX: R19.7 Diarrhea, unspecified (principal)
CPT/HCPCS: 99283-25

== ENCOUNTER 2020-10-05 09:22 | Emergency (ER) | payer OTHER ==
[2020-10-05 09:39] VITALS: BP 144/71; PULSE 90; TEMP 99.4
[2020-10-05 10:30] VITALS: BMI 28.8
== END 2020-10-05 10:45 | disposition home or self-care (01) ==
LOC: JER 09:22
DX: U07.1 COVID-19 (principal); R05 Cough
CPT/HCPCS: 71046-TC-FY; 99283-25

== ENCOUNTER 2020-10-26 09:59 | Emergency (ER) | payer OTHER ==
[2020-10-26 10:15] VITALS: BP 137/98; TEMP 99.8; BMI 26.5
[2020-10-26] MEDS ORDERED: SODIUM CHLORIDE 1,000 ML IV STA (10:26)
[2020-10-26 12:41] VITALS: PULSE 78
== END 2020-10-26 13:08 | disposition home or self-care (01) ==
LOC: FER 09:59
PROC: 3E0337Z Introduction of Electrolytic and Water Balance Substance into Peripheral Vein, Percutaneous Approach (ICD-10-PCS; principal; 2020-10-26)
DX: R07.9 Chest pain, unspecified (principal)
CPT/HCPCS: 71046-TC-FY; 81003; 87086; 93005; 99285-25

== ENCOUNTER 2020-11-27 11:44 | Emergency (ER) | payer OTHER ==
[2020-11-27 12:07] VITALS: BMI 26.4
[2020-11-27 13:31] LABS: BASO % 0.6 % (0-2.0); EOS % 2.5 % (0-4.5); HEMATOCRIT 41.2 % (35.4-49); HEMOGLOBIN 13.9 GM/dL (11.7-16.9); LYMPH % 27.1 % (8-40); MCH 29.7 pg (25.7-33.7); MCHC 33.9 g/dl (32.0-35.9); MEAN CELL VOLUME 87.5 fl (80-96); MEAN PLT VOLUME 9.8 fl (7.5-11.1); MONO % 5.4 % (3.8-10.2); NEUT % 64.4 % (42.8-82.8); PLATELET COUNT 256 K/MM3 (134-434); RDW 13.3 % (11.9-15.9)
[2020-11-27 13:39] LABS: INR 1.02 (0.83-1.09); PROTHROMBIN TIME (PATIENT) 12.5 SEC (9.7-13.0)
[2020-11-27 13:41] LABS: ACTIVATED PTT 30.8 SECONDS (25.2-36.5)
[2020-11-27 14:05] LABS: CALCIUM 9.4 mg/dL (8.5-10.1)
[2020-11-27 14:06] LABS: ALBUMIN 4.8 g/dl (3.4-5.0); BLOOD UREA NITROGEN 8.4 mg/dL (7-18)
[2020-11-27 14:08] LABS: CREATININE 0.7 mg/dL (0.55-1.3)
[2020-11-27 14:11] LABS: BILIRUBIN,TOTAL 0.6 mg/dL (0.2-1); TOT PROT 8.1 g/dl (6.4-8.2)
[2020-11-27 15:43] VITALS: BP 118/65; PULSE 82; TEMP 98
== END 2020-11-27 14:40 | disposition home or self-care (01) ==
LOC: JER 11:44
DX: R53.83 Other fatigue (principal); Z11.52 Encounter for screening for COVID-19
CPT/HCPCS: 36415; 80053; 83540; 83550; 84443; 85025; 85384; 85610; 85730; 99283-25; C9803; U0003; U0005

== ENCOUNTER 2021-01-11 17:45 | Emergency (ER) | payer OTHER ==
[2021-01-11 18:02] VITALS: BP 136/79; PULSE 86; TEMP 99; BMI 27.2
== END 2021-01-11 21:10 | disposition home or self-care (01) ==
LOC: JERFT 17:45
DX: J02.9 Acute pharyngitis, unspecified (principal)
CPT/HCPCS: 87880; 99283-25

== ENCOUNTER 2021-03-17 14:06 | Emergency (ER) | payer OTHER ==
[2021-03-17 14:35] VITALS: BP 108/72; PULSE 85; TEMP 98.6; BMI 26.4
== END 2021-03-17 16:30 | disposition home or self-care (01) ==
LOC: JERFT 14:06
DX: J06.9 Acute upper respiratory infection, unspecified (principal)
CPT/HCPCS: 71046-TC-FY; 99284-25; C9803; U0003; U0005

== ENCOUNTER 2021-04-15 10:04 | Emergency (ER) | payer OTHER ==
[2021-04-15 10:20] VITALS: BP 124/74; PULSE 83; TEMP 99.2; BMI 26.4
== END 2021-04-15 12:02 | disposition home or self-care (01) ==
LOC: JERFT 10:04
DX: R09.89 Other specified symptoms and signs involving the circulatory and respiratory systems (principal)
CPT/HCPCS: 99281-25

== ENCOUNTER 2021-06-29 08:41 | Emergency (ER) | payer OTHER ==
[2021-06-29 08:48] VITALS: BP 167/75; PULSE 107; TEMP 98; BMI 26.4
[2021-06-29] MEDS ORDERED: KETOROLAC TROMETHAMINE 15 MG/ML VIAL IM ONE (09:26)
[2021-06-29] MEDS ORDERED: IBUPROFEN 400 MG TABLET (FP) PO ONE ×2 (09:28→09:45)
[2021-06-29] MEDS ORDERED: DIPHTH,PERTUSS(ACELL),TET 0.5 ML DISP.SYRIN IM ONE (10:24)
== END 2021-06-29 10:58 | disposition home or self-care (01) ==
LOC: JERFT 08:41 → JER 08:41 → JERFT 10:58
PROC: 0H9QXZZ Drainage of Finger Nail, External Approach (ICD-10-PCS; principal; 2021-06-29)
PROC: 3E0234Z Introduction of Serum, Toxoid and Vaccine into Muscle, Percutaneous Approach (ICD-10-PCS; 2021-06-29)
PROC: 3E023GC Introduction of Other Therapeutic Substance into Muscle, Percutaneous Approach (ICD-10-PCS; 2021-06-29)
DX: S60.112A Contusion of left thumb with damage to nail, initial encounter (principal); W23.0XXA Caught, crushed, jammed, or pinched between moving objects, initial encounter
CPT/HCPCS: 73140-TC-LT-FY; 90471; 90715; 99284-25

== ENCOUNTER 2022-01-19 23:02 | Emergency (ER) | payer OTHER ==
[2022-01-19 23:18] VITALS: TEMP 98.1; BMI 26.4
[2022-01-19] MEDS ORDERED: ONDANSETRON 4 MG/2 ML VIAL ONE (23:40)
[2022-01-19] MEDS ORDERED: SODIUM CHLORIDE 0.9% 500 ML INFUS.BAG IV ONE (23:47)
[2022-01-19] MEDS ORDERED: ONDANSETRON 4 MG/2 ML VIAL IVPUSH ONE (23:47)
[2022-01-19 23:53] LABS: BASO % 0.3 % (0-2.0); EOS % 0.7 % (0-4.5); HEMOGLOBIN 15.1 GM/dL (11.7-16.9); LYMPH % 6.4 % (8-40); MCH 28.5 pg (25.7-33.7); MCHC 32.9 g/dl (32.0-35.9); MEAN CELL VOLUME 86.8 fl (80-96); MEAN PLT VOLUME 9.2 fl (7.5-11.1); MONO % 6.2 % (3.8-10.2); NEUT % 86.4 % (42.8-82.8); PLATELET COUNT 284 10^3/uL (134-434); RDW 13.3 % (11.9-15.9); WHITE BLOOD COUNT 17.8 K/mm3 (4.0-10.0)
[2022-01-20 00:14] LABS: ALBUMIN 4.9 g/dl (3.4-5.0); BLOOD UREA NITROGEN 6.2 mg/dL (7-18); CALCIUM 9.4 mg/dL (8.5-10.1)
[2022-01-20 00:17] LABS: CREATININE 0.9 mg/dL (0.55-1.3)
[2022-01-20] MEDS ORDERED: FAMOTIDINE 20 MG/50 ML IVPB 20 MG/50 ML MG IVPB ONE ×2 (00:18→00:38)
[2022-01-20 00:19] LABS: BILIRUBIN,TOTAL 0.4 mg/dL (0.2-1); TOT PROT 8.1 g/dl (6.4-8.2)
[2022-01-20] MEDS ORDERED: LACTATED RINGERS SOLUTION 1000 ML INFUS.BAG IV ONE (00:29)
[2022-01-20] MEDS ORDERED: METOCLOPRAMIDE HCL INJECTION 10 MG/2 ML VIAL IVPB ONE (00:29)
[2022-01-20] MEDS ORDERED: METOCLOPRAMIDE HCL INJECTION 10 MG/2 ML VIAL ONE (00:38)
[2022-01-20 01:18] LABS: INR 1.11 (0.83-1.09); PROTHROMBIN TIME (PATIENT) 12.8 SEC (9.7-13.0)
[2022-01-20 01:20] LABS: ACTIVATED PTT 25.6 SECONDS (25.2-36.5)
[2022-01-20] MEDS ORDERED: TRIMETHOBENZAMIDE HCL 200MG/2ML INJ IM ONE ×2 (02:28→02:39)
[2022-01-20] MEDS ORDERED: MAG HYDROX/AL HYDROX/SIMETH -MYLANTA- ORAL SUSPENSION PO ONE (03:48)
[2022-01-20] MEDS ORDERED: MAG HYDROX/AL HYDROX/SIMETH 30 ML UNIT-DOSE CUP ONE (03:58)
[2022-01-20 04:50] VITALS: BP 127/76; PULSE 82
== END 2022-01-20 04:53 | disposition home or self-care (01) ==
LOC: JER 23:02
PROC: 3E033GC Introduction of Other Therapeutic Substance into Peripheral Vein, Percutaneous Approach (ICD-10-PCS; principal; 2022-01-19)
PROC: 3E033GC Introduction of Other Therapeutic Substance into Peripheral Vein, Percutaneous Approach (ICD-10-PCS; 2022-01-19)
PROC: 3E023GC Introduction of Other Therapeutic Substance into Muscle, Percutaneous Approach (ICD-10-PCS; 2022-01-19)
DX: R11.2 Nausea with vomiting, unspecified (principal); R19.7 Diarrhea, unspecified
CPT/HCPCS: 36415; 71046-TC-FY; 74177-TC; 80053; 84484; 85025; 85610; 85730; 93005; 93010; 99285-25

== ENCOUNTER 2023-05-08 13:41 | Emergency (ER) | payer OTHER ==
[2023-05-08 13:53] VITALS: BP 138/79; PULSE 77; RESP 17; TEMP 97.9; BMI 27.1
[2023-05-08] MEDS ORDERED: ALBUTEROL SO4 2.5/IPRATROPIUM 0.5 INH SOL 3 ML VIAL.NEB. NEB ONE ×2 (13:56→14:24)
[2023-05-08] MEDS ORDERED: predniSONE 20 MG TABLET (UD) PO ONE (13:56)
[2023-05-08] MEDS ORDERED: predniSONE 20 MG TABLET (UD) ONE (14:24)
== END 2023-05-08 15:15 | disposition home or self-care (01) ==
LOC: JER 13:41 → JERFT 13:41
PROC: 3E0F7GC Introduction of Other Therapeutic Substance into Respiratory Tract, Via Natural or Artificial Opening (ICD-10-PCS; principal; 2023-05-08)
DX: R06.2 Wheezing (principal); R05.9 Cough, unspecified; R09.81 Nasal congestion
CPT/HCPCS: 71046-TC-FY; 99283-25

== ENCOUNTER 2023-10-26 19:11 | Emergency (ER) | payer OTHER ==
[2023-10-26 19:20] VITALS: BP 138/86; PULSE 77; RESP 16; TEMP 98.1; BMI 28.5
[2023-10-26] MEDS: ACETAMINOPHEN 500 MG TABLET (FP) PO ONE (19:46)
== END 2023-10-26 21:05 | disposition home or self-care (01) ==
LOC: FER 19:11
DX: S06.0X0A Concussion without loss of consciousness, initial encounter (principal); S54.11XA Injury of median nerve at forearm level, right arm, initial encounter; R20.2 Paresthesia of skin; V49.40XA Driver injured in collision with unspecified motor vehicles in traffic accident, initial encounter
CPT/HCPCS: 70450-TC; 99284-25

== ENCOUNTER 2024-03-03 21:32 | Emergency (ER) | payer OTHER ==
[2024-03-03 23:50] VITALS: BP 120/81; PULSE 61; RESP 16; TEMP 97.5; BMI 28.5
== END 2024-03-04 01:06 | disposition home or self-care (01) ==
LOC: FER 21:32
DX: S80.01XA Contusion of right knee, initial encounter (principal); M54.6 Pain in thoracic spine; V44.6XXA Car passenger injured in collision with heavy transport vehicle or bus in traffic accident, initial encounter; Y92.410 Unspecified street and highway as the place of occurrence of the external cause
CPT/HCPCS: 72100-TC-FY; 73562-TC-RT-FY; 99284-25